=== PATIENT | male | born 1950 | race Caucasian/White ===

== ENCOUNTER 2016-12-21 19:55 | Emergency (ER) | payer MEDICARE, BC ==
[2016-12-21] MEDS ORDERED: SODIUM CHLORIDE 0.9% 1,000 ML IV STA ×2 (20:28)
[2016-12-21 21:01] LABS: Basophils % (A) 0 %; CH 31.9; CHCM 33.1; Eosinophils # (A) 0.1 k/uL (0-0.7); Eosinophils % (A) 1 %; HDW 2.24; HGB 15.6 gm/dL (13.0-17.5); Luc # (Auto) 0.15; Luc % (Auto) 2; Lymphocytes % (A) 20 %; MCH 32.2 pg (25.0-35.0); MCHC 33.3 g/dL (31.0-37.0); MCV 96.7 fL (80.0-100.0); Mean Platelet Volume 7.1; Monocytes # (A) 0.3 k/uL (0-1.0); Monocytes % (A) 3 %; Neutrophils # (A) 7.6 k/uL (1.3-7.7); Neutrophils % (A) 75 %; RBC 4.86 m/uL (4.30-5.90); RDW 12.5 % (11.5-15.5); WBC 10.1 k/uL (3.8-10.6); WBC (Perox) 9.92
[2016-12-21 21:10] LABS: ALT 42 U/L (21-72); AST 28 U/L (17-59); Alkaline Phosphatase 56 U/L (38-126); Anion Gap 15 mmol/L; Blood Urea Nitrogen 8 mg/dL (9-20); Carbon Dioxide 20 mmol/L (22-30); Chloride 104 mmol/L (98-107); Glucose 93 mg/dL (74-99); Non-African American GFR(MDRD) >60 (>60 ml/min/1.73 sqM); Potassium 4.6 mmol/L (3.5-5.1); Sodium 139 mmol/L (137-145); Total Bilirubin 0.2 mg/dL (0.2-1.3); Total Protein 7.6 g/dL (6.3-8.2)
--- NOTE | 2016-12-21 21:17 | XR ---
EXAMINATION TYPE: XR chest 2V DATE OF EXAM: 12/21/2016 COMPARISON: NONE HISTORY: Weakness TECHNIQUE: Frontal and lateral views of the chest are obtained. FINDINGS: There is no focal air space opacity, pleural effusion, or pneumothorax seen. The cardiac silhouette size is within normal limits. The osseous structures are intact. Minimal degenerative ch anges of the thoracic spine are incidentally noted. Mild degenerative changes of the acromio clavicul ar joints are also seen. IMPRESSION: No acute cardiopulmonary process.
[2016-12-21 21:20] LABS: Alcohol 202 mg/dL
[2016-12-21 21:39] LABS: Appearance,Urine Clear (Clear); Bilirubin,Urine Negative (Negative); Glucose,Urine (UA) Negative (Negative); Ketones,Urine Trace (Negative); Leukocyte Esterase,Urine Negative (Negative); Nitrite,Urine Negative (Negative); Protein,Urine Negative (Negative); Specific Gravity,Urine 1.007 (1.001-1.035); UA Billing (MACRO vs. MICRO) CHEM; Urobilinogen,Urine <2.0 mg/dL (<2.0)
--- NOTE | 2016-12-21 21:51 | CT ---
EXAMINATION TYPE: CT brain wo con DATE OF EXAM: 12/21/2016 COMPARISON: NONE HISTORY: Weakness CT DLP: 1090.40 mGycm. Automated Exposure Control for Dose Reduction was Utilized. TECHNIQUE: CT scan of the head is performed without contrast. FINDINGS: There is no acute intracranial hemorrhage, mass effect, or midline shift identified. Dys trophic basal ganglia calcifications are seen bilaterally, punctate. The ventricles and sulci are wit hin normal limits in size. The globes are intact and the visualized sinuses are clear. 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 Left frontal sinuses are hypoplastic. IMPRESSION: No acute intracranial hemorrhage, mass effect, or midline shift is seen.
[2016-12-21 22:00] LABS: INR 1.1 (<1.2); Partial Thromboplastin Time 24.1 sec (22.0-30.0); Prothrombin Time 10.9 sec (9.0-12.0)
[2016-12-21 22:12] LABS: Creatine Kinase 97 U/L (55-170)
[2016-12-21 22:24] LABS: Creatine Kinase MB 1.3 ng/mL (0.0-2.4); Troponin I <0.012 ng/mL (0.000-0.034)
--- NOTE | 2016-12-22 00:08 | ED ---
Weakness HPI - General Chief complaint: Weakness Stated complaint: weakness Time Seen by Provider: 12/21/16 20:01 Source: patient, EMS Mode of arrival: EMS Limitations: no limitations - History of Present Illness Initial comments: Extremities 6 years old male comes in complaining about pain being very weak, he has been drinking today then numb he was resting in with some friends he felt very weak he laid down and he was unable to Really didn't he denies any headaches he denies any neck pain he denies any chest pain no shortness of breath no abdominal pain no frequency urgency urgency dysuria no signs of TIA or CVA - Related Data Home Medications Medication Instructions Recorded Confirmed No Known Home Medications [No 12/21/16 12/21/16 Known Home Medications] Allergies Allergy/AdvReac Type Severity Reaction Status Date / Time No Known Allergies Allergy Verified 12/21/16 21:11 Review of Systems ROS Statement: Those systems with pertinent positive or pertinent negative responses have been documented in the HPI. ROS Other: All systems not noted in ROS Statement are negative. Past Medical History Past Medical History: Prostate Disorder History of Any Multi-Drug Resistant Organisms: None Reported Past Surgical History: No Surgical Hx Reported Past Psychological History: No Psychological Hx Reported Smoking Status: Never smoker Past Alcohol Use History: Daily Past Drug Use History: None Reported General Exam - General Exam Comments Initial Comments: General: The patient is awake and alert, in no distress, and does not appear acutely ill. GCS is 15 and he looks sleepy Skin: Skin is warm and dry and no rashes or lesions are noted. Eye: Pupils are equal, round and reactive to light, extra-ocular movements are intact; there is normal conjunctiva bilaterally. Ears, nose, mouth and throat: There are moist mucous membranes and no oral lesions. Neck: The neck is supple, there is no tenderness or JVD. Cardiovascular: There is a regular rate and rhythm. No murmur, rub or gallop is appreciated. Respiratory: To auscultation bilateral, no wheezing no rhonchi no distress respiratory mendez noticed Gastrointestinal: Soft, non-distended, non-tender abdomen without masses or organomegaly noted. There is no rebound or guarding present. Bowel sounds are unremarkable. Back: There is no tenderness to palpation in the midline. There is no obvious deformity. Musculoskeletal: Normal ROM, no tenderness, There is no pedal edema. There is no calf tenderness or swelling. No cords were appreciated. Neurological: CN II-XII intact, Cranial nerves III through XII are intact. There are no obvious motor or sensory deficits. Coordination appears grossly intact. Speech is normal. Psychiatric: Cooperative, appropriate mood & affect, normal judgment. Limitations: no limitations Course Vital Signs 12/21/16 12/21/16 12/21/16:17 21:30 23:03 Temperature 97.5 F L Pulse Rate 85 84 86 Respiratory 16 16 16 Rate Blood Pressure 139/70 107/81 O2 Sat by Pulse 98 98 99 Oximetry His labs and imaging were reviewed and discussed with the family, his CBC, INR, comprehensive metabolic panel, troponin within normal range his oncologist for 2 chest x-rays are normal range at CT is within normal range, these were discussed with the patient and the family he was reassured and he was counseled about a call as well as dehydration - Reevaluation(s) Reevaluation #1: 12/22/16 00:05 Time he was reassessed at 12 midnight, he amputated well, he told me he feels pretty good feels his strength is back and he was to go home his cannot drive him Medical Decision Making - Lab Data Result diagrams: 12/21/16 20:52 12/21/16 20:52 Lab Results 12/21/16 12/21/16 12/21/16 Range/Units 20:52 20:52 21:20 WBC 10.1 (3.8-10.6) k/uL RBC 4.86 (4.30-5.90) m/uL Hgb 15.6 (13.0-17.5) gm/dL Hct 47.0 (39.0-53.0) % MCV 96.7 (80.0-100.0) fL MCH 32.2 (25.0-35.0) pg MCHC 33.3 (31.0-37.0) g/dL RDW 12.5 (11.5-15.5) % Plt Count 259 (150-450) k/uL Neutrophils % 75 % Lymphocytes % 20 % Monocytes % 3 % Eosinophils % 1 % Basophils % 0 % Neutrophils # 7.6 (1.3-7.7) k/uL Lymphocytes # 2.0 (1.0-4.8) k/uL Monocytes # 0.3 (0-1.0) k/uL Eosinophils # 0.1 (0-0.7) k/uL Basophils # 0.0 (0-0.2) k/uL PT (9.0-12.0) sec INR (<1.2) APTT (22.0-30.0) sec Sodium 139 (137-145) mmol/L Potassium 4.6 (3.5-5.1) mmol/L Chloride 104 (98-107) mmol/L Carbon Dioxide 20 L (22-30) mmol/L Anion Gap 15 mmol/L BUN 8 L (9-20) mg/dL Creatinine 0.81 (0.66-1.25) mg/dL Est GFR (MDRD) Af Amer >60 (>60 ml/min/1.73 sqM) Est GFR (MDRD) Non-Af >60 (>60 ml/min/1.73 sqM) Glucose 93 (74-99) mg/dL Plasma Lactic Acid Cel[place] (0.7-2.0) mmol/L Calcium 9.0 (8.4-10.2) mg/dL Total Bilirubin 0.2 (0.2-1.3) mg/dL AST 28 (17-59) U/L ALT 42 (21-72) U/L Alkaline Phosphatase 56 (38-126) U/L Total Creatine Kinase (55-170) U/L CK-MB (CK-2) (0.0-2.4) ng/mL CK-MB (CK-2) Rel Index Troponin I (0.000-0.034) ng/mL Total Protein 7.6 (6.3-8.2) g/dL Albumin 4.4 (3.5-5.0) g/dL Urine Color Light Yellow Urine Appearance Clear (Clear) Urine pH 6.0 (5.0-8.0) Ur Specific [place] 1.007 (1.001-1.035) Urine Protein Negative (Negative) Urine Glucose (UA) Negative (Negative) Urine Ketones Trace H (Negative) Urine Blood Negative (Negative) Urine Nitrite Negative (Negative) Urine Bilirubin Negative (Negative) Urine Urobilinogen <2.0 (<2.0) mg/dL Ur Leukocyte Esterase Negative (Negative) Serum Alcohol 202 mg/dL 10/01/17 10/01/17 10/01/17 Range/Units 21:26 21:26 21:26 WBC (3.8-10.6) k/uL RBC (4.30-5.90) m/uL Hgb (13.0-17.5) gm/dL Hct (39.0-53.0) % MCV (80.0-100.0) fL MCH (25.0-35.0) pg MCHC (31.0-37.0) g/dL RDW (11.5-15.5) % Plt Count (150-450) k/uL Neutrophils % % Lymphocytes % % Monocytes % % Eosinophils % % Basophils % % Neutrophils # (1.3-7.7) k/uL Lymphocytes # (1.0-4.8) k/uL Monocytes # (0-1.0) k/uL Eosinophils # (0-0.7) k/uL Basophils # (0-0.2) k/uL PT 10.9 (9.0-12.0) sec INR 1.1 (<1.2) APTT 24.1 (22.0-30.0) sec Sodium (137-145) mmol/L Potassium (3.5-5.1) mmol/L Chloride (98-107) mmol/L Carbon Dioxide (22-30) mmol/L Anion Gap mmol/L BUN (9-20) mg/dL Creatinine (0.66-1.25) mg/dL Est GFR (MDRD) Af Amer (>60 ml/min/1.73 sqM) Est GFR (MDRD) Non-Af (>60 ml/min/1.73 sqM) Glucose (74-99) mg/dL Plasma Lactic Acid [place] 1.6 (0.7-2.0) mmol/L Calcium (8.4-10.2) mg/dL Total Bilirubin (0.2-1.3) mg/dL AST (17-59) U/L ALT (21-72) U/L Alkaline Phosphatase (38-126) U/L Total Creatine Kinase 97 (55-170) U/L CK-MB (CK-2) 1.3 (0.0-2.4) ng/mL CK-MB (CK-2) Rel Index 1.3 Troponin I <0.012 (0.000-0.034) ng/mL Total Protein (6.3-8.2) g/dL Albumin (3.5-5.0) g/dL Urine Color Urine Appearance (Clear) Urine pH (5.0-8.0) Ur Specific [place] (1.001-1.035) Urine Protein (Negative) Urine Glucose (UA) (Negative) Urine Ketones (Negative) Urine Blood (Negative) Urine Nitrite (Negative) Urine Bilirubin (Negative) Urine Urobilinogen (<2.0) mg/dL Ur Leukocyte Esterase (Negative) Serum Alcohol mg/dL Disposition Clinical Impression: Weakness, Acute alcohol intoxication Disposition: HOME SELF-CARE Condition: Good Instructions: Dehydration (ED) Additional Instructions: Is advised to keep himself well-hydrated and drinking in moderation . Return to the ER if symptoms recur or get worse otherwise follow-up with family doctor Referrals: William Aldana DO [Primary Care Provider] - 1-2 days
[2016-12-22 00:15] VITALS: BP 130/66; PULSE 78; RESP 20; TEMP 98.6
== END 2016-12-22 00:15 | disposition home or self-care (01) ==
LOC: EC 19:55
DX: R53.1 Weakness (principal); F10.129 Alcohol abuse with intoxication, unspecified; R40.2412 Glasgow coma scale score 13-15, at arrival to emergency department; Z53.8 Procedure and treatment not carried out for other reasons
CPT/HCPCS: 36415; 70450; 71020; 80053; 80320; 81003; 82550; 82553; 83605; 84484; 85025; 85610; 85730; 96360; 99285

== ENCOUNTER → 2018-11-25 | Outpatient (CLI) | payer BC, MEDICARE ==
[2018-11-25 16:13] LABS: Total Bilirubin 0.4 mg/dL (0.2-1.2)
== END | disposition home or self-care (01) ==
LOC: LABWHC1 09:39
PROVIDERS: ATTEND Internal Medicine Medical Oncology
DX: C61 Malignant neoplasm of prostate (principal)
CPT/HCPCS: 36415; 82247; 84075; 84450; 84460

== ENCOUNTER → 2018-12-02 | Outpatient (CLI) | payer MEDICARE ==
[2018-12-02 16:43] LABS: Total Bilirubin 0.4 mg/dL (0.3-1.2)
== END | disposition home or self-care (01) ==
LOC: LABWHC1 10:35
PROVIDERS: ATTEND Internal Medicine Medical Oncology
DX: C61 Malignant neoplasm of prostate (principal)
CPT/HCPCS: 36415; 82247; 84075; 84450; 84460

== ENCOUNTER → 2019-01-17 | Outpatient (CLI) | payer MEDICARE ==
[2019-01-17 16:50] LABS: Total Bilirubin 0.7 mg/dL (0.2-1.2)
== END | disposition home or self-care (01) ==
LOC: LABWHC1 08:38
PROVIDERS: ATTEND Internal Medicine Medical Oncology
DX: C61 Malignant neoplasm of prostate (principal)
CPT/HCPCS: 36415; 82247; 84075; 84450; 84460

== ENCOUNTER 2021-10-01 16:00 | Observation (INO) | payer MEDICARE ==
[2021-10-01 18:05] LABS: ALT 16 U/L (4-49); AST 27 U/L (17-59); African American GFR (CKD) >90 (>60 ml/min/1.73 sqM); Albumin 4.5 g/dL (3.5-5.0); Alkaline Phosphatase 52 U/L (38-126); Anion Gap 8 mmol/L; Blood Urea Nitrogen 12 mg/dL (9-20); Calcium 9.1 mg/dL (8.4-10.2); Carbon Dioxide 23 mmol/L (22-30); Chloride 105 mmol/L (98-107); Glucose 86 mg/dL (74-99); Magnesium 2.2 mg/dL (1.6-2.3); Non-African American GFR(CKD) 89 (>60 ml/min/1.73 sqM); Potassium 4.4 mmol/L (3.5-5.1); Sodium 136 mmol/L (137-145); Total Bilirubin 0.6 mg/dL (0.2-1.3); Total Protein 7.3 g/dL (6.3-8.2)
--- NOTE | 2021-10-01 18:05 | XR ---
EXAMINATION TYPE: XR chest 2V DATE OF EXAM: 10/01/2021 5:57 PM COMPARISON: Chest radiographs from 12/21/2016. TECHNIQUE: XR chest 2V Portable AP radiograph of the chest. CLINICAL INDICATION:Male, 71 years old with history of Chest Pain; FINDINGS: Lungs/Pleura: There is no evidence of pleural effusion, focal consolidation, or pneumothorax. Pulmonary vascularity: Unremarkable. Heart/mediastinum: Cardiomediastinal silhouette is unremarkable. Musculoskeletal: No acute osseous pathology. IMPRESSION: No acute cardiopulmonary disease/process.
[2021-10-01 18:16] LABS: Basophils # (A) 0.1 k/uL (0-0.2); Basophils % (A) 1 %; Eosinophils # (A) 0.1 k/uL (0-0.7); Eosinophils % (A) 1 %; HCT 45.2 % (39.0-53.0); INR 1.1 (<1.2); Lymphocytes # (A) 2.5 k/uL (1.0-4.8); Lymphocytes % (A) 37 %; MCH 32.3 pg (25.0-35.0); MCHC 33.3 g/dL (31.0-37.0); MCV 96.9 fL (80.0-100.0); Monocytes # (A) 0.5 k/uL (0-1.0); Monocytes % (A) 8 %; Neutrophils # (A) 3.4 k/uL (1.3-7.7); Neutrophils % (A) 50 %; Partial Thromboplastin Time 25.3 sec (22.0-30.0); Platelet Count 212 k/uL (150-450); Prothrombin Time 11.7 sec (9.0-12.0); RBC 4.66 m/uL (4.30-5.90); RDW 13.2 % (11.5-15.5); WBC 6.7 k/uL (3.8-10.6)
--- NOTE | 2021-10-01 18:50 | ED ---
General Adult HPI - General Chief complaint: Recheck/Abnormal Lab/Rx Stated complaint: Irregular EKG-Sent by PCP Time Seen by Provider: 10/01/21 18:25 Source: patient, RN notes reviewed, old records reviewed Mode of arrival: ambulatory Limitations: no limitations - History of Present Illness Initial comments: This is a 71-year-old male who presents emergency department stating that more recently anytime he bends over he stands up and almost passes out. Patient states his been ongoing a few months. Patient states he got into see his primary medical care doctor for the first time in a long time and he noted an abnormality in EKG and sent to the emergency department. Patient states earlier today he has some chest tightness but that has gone away. Patient denies any fever chills or cough. Patient states he does not typically short of breath e talon when he bends over he just feels like he is going to pass out. Patient denies any leg swelling or calf tenderness. Patient denies any nausea vomiting diarrhea. Patient denies any back pain. - Related Data Home Medications Medication Instructions Recorded Confirmed Tamsulosin HCl [Flomax] 0.4 mg PO BID 10/01/21 10/01/21 Allergies Allergy/AdvReac Type Severity Reaction Status Date / Time No Known Allergies Allergy Verified 10/01/21 18:43 Review of Systems ROS Statement: Those systems with pertinent positive or pertinent negative responses have been documented in the HPI. ROS Other: All systems not noted in ROS Statement are negative. Past Medical History Past Medical History: Prostate Disorder History of Any Multi-Drug Resistant Organisms: None Reported Past Surgical History: No Surgical Hx Reported Past Psychological History: No Psychological Hx Reported Smoking Status: Never smoker Past Alcohol Use History: Daily Past Drug Use History: None Reported General Exam - General Exam Comments Initial Comments: GENERAL: Patient is well-developed and well-nourished. Patient is nontoxic and well- hydrated and is in no acute distress. ENT: Neck is soft and supple. No significant lymphadenopathy is noted. Oropharynx is clear. Moist mucous membranes. Neck has full range of motion without eliciting any pain. EYES: The sclera were anicteric and conjunctiva were pink and moist. Extraocular movements were intact and pupils were equal round and reactive to light. Eyelids were unremarkable. PULMONARY: Unlabored respirations. Good breath sounds bilaterally. No audible rales rhonchi or wheezing was noted. CARDIOVASCULAR: Patient has an irregular heartbeat. ABDOMEN: Soft and nontender with normal bowel sounds. SKIN: Skin is clear with no lesions or rashes and otherwise unremarkable. NEUROLOGIC: Patient is alert and oriented x3. Cranial nerves II through XII are grossly intact. Motor and sensory are also intact. Normal speech, volume and content. Symmetrical smile. MUSCULOSKELETAL: Normal extremities with adequate strength and full range of motion. LYMPHATICS: No significant lymphadenopathy is noted PSYCHIATRIC: Normal psychiatric evaluation. Limitations: no limitations Course Vital Signs 10/01/21 16:17 Temperature 97.6 F Pulse Rate 73 Respiratory 15 Rate Blood Pressure 135/94 O2 Sat by Pulse 100 Oximetry Medical Decision Making - Medical Decision Making EKG shows atrial flutter at 75 bpm QRS is 152 QTC is 406 QTC is 434. Patient's EKG shows a right bundle branch block. Chest x-ray shows no acute abnormality. I started the patient on heparin because of the new onset atrial flutter. I spoke with some physicians agreed to admit the patient admitted the patient wrote admitting orders. - Lab Data Result diagrams: 10/01/21 17:26 10/01/21 17:26 Lab Results 10/01/21 10/01/21 10/01/21 Range/Units 17:26 17:26 17:26 WBC 6.7 (3.8-10.6) k/uL RBC 4.66 (4.30-5.90) m/uL Hgb 15.0 (13.0-17.5) gm/dL Hct 45.2 (39.0-53.0) % MCV 96.9 (80.0-100.0) fL MCH 32.3 (25.0-35.0) pg MCHC 33.3 (31.0-37.0) g/dL RDW 13.2 (11.5-15.5) % Plt Count 212 (150-450) k/uL MPV 8.0 Neutrophils % 50 % Lymphocytes % 37 % Monocytes % 8 % Eosinophils % 1 % Basophils % 1 % Neutrophils # 3.4 (1.3-7.7) k/uL Lymphocytes # 2.5 (1.0-4.8) k/uL Monocytes # 0.5 (0-1.0) k/uL Eosinophils # 0.1 (0-0.7) k/uL Basophils # 0.1 (0-0.2) k/uL PT 11.7 (9.0-12.0) sec INR 1.1 (<1.2) APTT 25.3 (22.0-30.0) sec Sodium 136 L (137-145) mmol/L Potassium 4.4 (3.5-5.1) mmol/L Chloride 105 (98-107) mmol/L Carbon Dioxide 23 (22-30) mmol/L Anion Gap 8 mmol/L BUN 12 (9-20) mg/dL Creatinine 0.84 (0.66-1.25) mg/dL Est GFR (CKD-EPI)AfAm >90 (>60 ml/min/1.73 sqM) Est GFR (CKD-EPI)NonAf 89 (>60 ml/min/1.73 sqM) Glucose 86 (74-99) mg/dL Calcium 9.1 (8.4-10.2) mg/dL Magnesium 2.2 (1.6-2.3) mg/dL Total Bilirubin 0.6 (0.2-1.3) mg/dL AST 27 (17-59) U/L ALT 16 (4-49) U/L Alkaline Phosphatase 52 (38-126) U/L Troponin I (0.000-0.034) ng/mL Total Protein 7.3 (6.3-8.2) g/dL Albumin 4.5 (3.5-5.0) g/dL 10/01/21 Range/Units 17:26 WBC (3.8-10.6) k/uL RBC (4.30-5.90) m/uL Hgb (13.0-17.5) gm/dL Hct (39.0-53.0) % MCV (80.0-100.0) fL MCH (25.0-35.0) pg MCHC (31.0-37.0) g/dL RDW (11.5-15.5) % Plt Count (150-450) k/uL MPV Neutrophils % % Lymphocytes % % Monocytes % % Eosinophils % % Basophils % % Neutrophils # (1.3-7.7) k/uL Lymphocytes # (1.0-4.8) k/uL Monocytes # (0-1.0) k/uL Eosinophils # (0-0.7) k/uL Basophils # (0-0.2) k/uL PT (9.0-12.0) sec INR (<1.2) APTT (22.0-30.0) sec Sodium (137-145) mmol/L Potassium (3.5-5.1) mmol/L Chloride (98-107) mmol/L Carbon Dioxide (22-30) mmol/L Anion Gap mmol/L BUN (9-20) mg/dL Creatinine (0.66-1.25) mg/dL Est GFR (CKD-EPI)AfAm (>60 ml/min/1.73 sqM) Est GFR (CKD-EPI)NonAf (>60 ml/min/1.73 sqM) Glucose (74-99) mg/dL Calcium (8.4-10.2) mg/dL Magnesium (1.6-2.3) mg/dL Total Bilirubin (0.2-1.3) mg/dL AST (17-59) U/L ALT (4-49) U/L Alkaline Phosphatase (38-126) U/L Troponin I <0.012 (0.000-0.034) ng/mL Total Protein (6.3-8.2) g/dL Albumin (3.5-5.0) g/dL Critical Care Time Critical Care Time: Yes Total Critical Care Time: 35 Disposition Clinical Impression: New onset atrial flutter Disposition: ADMITTED IP TO THIS HOSP Referrals: Hal Gutiérrez MD [Primary Care Provider] - 1-2 days Time of Disposition: 18:52
[2021-10-01] MEDS ORDERED: NITROGLYCERIN SL TABS 0.4 MG TAB SUBLINGUAL PRN (20:04)
[2021-10-01] MEDS: SODIUM CHLORIDE 0.9% 1,000 ML IV SCH (23:24)
--- NOTE | 2021-10-02 03:29 | P.HPIM ---
History of Present Illness H&P Date: 10/01/21 Chief Complaint: Presyncope 71-year-old male with prostate cancer was treated conservatively by himself Patient comes into the hospital for evaluation upon recommendation of his PCP due to abnormal EKG. Patient reports that for the past 2 months he isn't having limited activity he normally enjoys working in his yard however over the past 2 months he would feel almost passing out every time he bends over and tried stands up and also feels some palpitations. He denies any recent travel or hospitalization he denies any recent illness denies any fevers chills coughing c hest pain or trouble breathing denies any GI bleeding He reports history of prostate cancer he was initiated on some therapy that he couldn't tolerate and he elected to treated conservatively and naturally by himself. He denies any hematuria or new urinary symptoms. He denies any cardiac history Workup in the ED showed atrial flutter Blood work unremarkable Patient denies tobacco smoking illicit drugs he does admit to occasional alcohol Review of Systems Pertinent positives as noted in HPI. All other systems were reviewed and are negative Past Medical History Past Medical History: Prostate Disorder History of Any Multi-Drug Resistant Organisms: None Reported Past Surgical History: No Surgical Hx Reported Past Psychological History: No Psychological Hx Reported Smoking Status: Never smoker Past Alcohol Use History: Daily Past Drug Use History: None Reported - Past Family History Family Family Medical History: No Reported History Medications and Allergies Home Medications Medication Instructions Recorded Confirmed Type Tamsulosin HCl [Flomax] 0.4 mg PO BID 10/01/21 10/01/21 History Allergies Allergy/AdvReac Type Severity Reaction Status Date / Time No Known Allergies Allergy Verified 10/01/21 18:43 Physical Exam Vitals: Vital Signs Temp Pulse Resp BP Pulse Ox 10/01/21 16:17 97.6 F 73 15 135/94 100 Intake and Output 10/01/21 10/01/21 10/01/21 06:59 14:59 22:59 Other: Weight 92.986 kg Constitutional: No acute distress, conversant, pleasant Eyes: Anicteric sclerae, moist conjunctiva, Pupils equal round reactive to light ENMT: NC/AT Oropharynx clear, no erythema, or exudates Neck: Supple, FROM, no masses, or JVD No carotid bruits No thyromegaly Lungs: Clear to auscultation Clear to percussion Normal respiratory effort, no accessory muscle use Cardiovascular: Heart irregular No murmurs, gallops, or rubs No peripheral edema Abdominal: Soft Nontender, no guarding, rebound or rigidity Abdomen moving with respiration Normoactive bowel sounds No hepatomegaly, No splenomegaly No palpable mass No abdominal wall hernia noted Skin: Normal temperature, tone, texture, turgor No induration No subcutaneous nodules No rash, lesions No ulcers Extremities: No digital cyanosis No clubbing Pedal pulses intact and symmetrical Radial pulses intact and symmetrical No calf tenderness Psychiatric: Alert and oriented to person, place and time Appropriate affect fair judgement Neuro Muscles Strength 5/5 in all 4 extremities Sensation to light touch grossly present throughout Cranial nerves II-XII grossly intact No focal sensory deficits Lymphatics: no palpable cervical or supraclavicular , or inguinal lymph nodes Results CBC & Chem 7: 10/01/21 17:26 10/01/21 17:26 Labs: Abnormal Lab Results - Last 24 Hours (Table) 10/01/21 Range/Units 17:26 Sodium 136 L (137-145) mmol/L Assessment and Plan Assessment: Atrial flutter Check echocardiogram Check TSH Cardiac monitoring Monitor vital signs Fall precautions Cardiology consult Trend troponins Continue with aspirin Currently is rate controlled, if heart rate persistently beyond 110 we'll initiate Cardizem History of prostate cancer DVT prophylaxis heparin subcu 3 times a day Full code
[2021-10-02] MEDS ORDERED: HEPARIN SODIUM,PORCINE/PF 5,000 UNIT/0.5 ML SYRINGE SQ SCH (08:00)
[2021-10-02] MEDS: ASPIRIN 325 MG TAB PO SCH (09:46)
[2021-10-02] MEDS: SODIUM CHLORIDE 0.9% 1,000 ML IV SCH (11:50)
--- NOTE | 2021-10-02 12:15 | CA ---
Transthoracic Echo Report Name: Edd Mcconnell Age: 71 Gender: M : 1950 Exam Date: 10/02/2021 08:19 Exam Location: [facility] Ht (in): 71 Wt (lb): 200 Ordering Physician: Sandi Ogden MD Attending/Referring Phys: [id number], Melvi Labor Trainer Janet Knowles, LOVELY Procedure CPT: Indications: aflutter Cardiac Hx: Technical Quality: Fair Contrast 1: Total Dose (mL): Contrast 2: Total Dose (mL): MEASUREMENTS (Male / Female) Normal Values 2D ECHO LV Diastolic Diameter PLAX 4.3 cm 4.2 - 5.9 / 3.9 - 5.3 cm LV Systolic Diameter PLAX 3.0 cm IVS Diastolic Thickness 1.2 cm 0.6 - 1.0 / 0.6 - 0.9 cm LVPW Diastolic Thickness 1.2 cm 0.6 - 1.0 / 0.6 - 0.9 cm LV Relative Wall Thickness 0.5 RV Internal Dim ED PLAX 4.3 cm LA Volume 55.2 cm??? 18 - 58 / 22 - 52 cm??? M-MODE Aortic Root Diameter MM 3.5 cm LA Systolic Diameter MM 2.3 cm LA Ao Ratio MM 0.7 MV E Point Septal Separation 1.4 cm AV Cusp Separation MM 1.9 cm DOPPLER AV Peak Velocity 83.7 cm/s AV Peak Gradient 2.8 mmHg MR Peak Velocity 298.2 cm/s MR Peak Gradient 35.6 mmHg TR Peak Velocity 261.0 cm/s TR Peak Gradient 27.2 mmHg Right Ventricular Systolic Press 32.2 mmHg FINDINGS Left Ventricle Mildly increased septal wall thickness. Left ventricular ejection fraction is estimated at 40-45 %. With moderate global hypokinesis. Left ventricular cavity size normal. Afib noted Right Ventricle Right ventricular dilatation. Moderate event Right Atrium Right atrial dilatation. Left Atrium The left atrium is normal in size. Mitral Valve Structurally normal mitral valve without significant stenosis or prolapse. There is mild mitral regurgitation. Mitral valve thickened. Aortic Valve Structurally normal aortic valve without significant sclerosis or stenosis. There is no aortic regurgitation. Tricuspid Valve Structurally normal tricuspid valve without significant stenosis. Pulmonary artery systolic pressure is normal. Trace tricuspid regurgitation. Pulmonic Valve Not well visualized. There is no pulmonic regurgitation. Pericardium Normal pericardium without effusion. Aorta Normal aortic root dimension. CONCLUSIONS 1. moderately impaired systolic function 2. Mild mitral regurgitation 3. No pericardial effusion. Previewed by: Dr. Andres Sarah MD (Electronically Signed) Final Date: 02 October 2021 12:14
--- NOTE | 2021-10-02 15:14 | P.PN ---
Subjective Progress Note Date: 10/02/21 Principal diagnosis: Atrial fibrillation Patient was seen and examined. No acute events overnight. Patient reports continued shortness of breath with exertion. He reports feeling winded if he bends down. He denies any chest pain or palpitations. No nausea or vomiting. No fever or chills. Objective - Vital Signs Vital signs: Vital Signs Temp 97.5 F L 10/02/21 12:00 Pulse 82 10/02/21 14:00 Resp 17 10/02/21 14:00 BP 158/56 10/02/21 12:00 Pulse Ox 91 L 10/02/21 12:00 FiO2 Intake & Output 10/01/21 10/02/21 10/02/21 18:59 06:59 18:59 Intake Total 120 Balance 120 Weight 92.986 kg 91.04 kg Intake: Oral 120 Other: Voiding Method Toilet Toilet # Voids 1 2 # Bowel Movements 1 - Exam General: [non toxic], [no distress], [appears at stated age] Derm: [warm], [dry] Head: [atraumatic], [normocephalic], [symmetric] Eyes: [EOMI], [no lid lag], [anicteric sclera] Mouth: [no lip lesion], [mucus membranes moist] Cardiovascular: [Irregularly regular], [no murmur] Lungs: [CTA bilateral], [no rhonchi, no rales] , [no accessory muscle use] Ext: [no gross muscle atrophy], [no edema], [no contractures] Neuro: [no focal neuro deficits] Psych: [Alert], [oriented], [appropriate affect] - Labs CBC & Chem 7: 10/01/21 17:26 10/01/21 17:26 Labs: Abnormal Lab Results - Last 24 Hours (Table) 10/01/21 Range/Units 17:26 Sodium 136 L (137-145) mmol/L Assessment and Plan Assessment: Atrial flutter Systolic CHF, stable Echocardiogram shows EF of 40-45% with global hypokinesis TSH within normal limits Troponins trended and ACS ruled out Cardiac monitoring Monitor vital signs Fall precautions Discussed with cardiology, continue to monitor overnight. Continue with aspirin Patient started on metoprolol and losartan. History of prostate cancer Follows physician out of [facility] in [place]. DVT prophylaxis heparin subcu 3 times a day FULL CODE
[2021-10-02 17:10] LABS: Chol/HDL Ratio 4.51 Ratio; LDL Cholesterol,Calculated 131.1 mg/dL (0.0-131.0); VLDL Calculation 19.92 mg/dL (5.00-40.00)
--- NOTE | 2021-10-02 20:57 | CONS ---
CONSULTATION Edd Mcconnell is a fairly active gentleman who for the last two months has been experiencing episodes of dizziness, lightheadedness, shortness of breath and decreased stamina. He did not seek medical attention and continued to work. Finally his insisted that he should come to the emergency room. Upon emergency room arrival, he said whenever he feels dizzy or lightheaded, he feels his heart racing and then he almost passes out. He went and saw his primary care physician after a long gap in visits and he was found to be in atrial flutter and sent to the emergency room. Patient is in atrial flutter. The rate is anywhere between 80 and 110. For two months he has history of palpitations, dizziness, lightheadedness, but no mallory syncope. He also noted decreased stamina and more shortness of breath. Echo revealed ejection fraction of 40% to 45%. Rate control is fair. He is resting comfortably without any rest symptoms. He does have exertional shortness of breath, palpitations, lightheadedness, but no mallory syncope. PAST MEDICAL HISTORY: He has some benign prostatic hypertrophy and takes Flomax. No evidence of any hypertension, diabetes, hyperlipidemia or CVA. He does not smoke but takes alcohol three times a week, 3 to 6 beers. EKG revealed atrial flutter with a variable rate of about 90 per minute with underlying right bundle branch block type IVCD. LABORATORY: Data do not suggest any myocardial damage. Thyroid function is normal. PHYSICAL EXAMINATION: On examination, blood pressure is 120/70, pulse rate is 90, irregular. HEENT unremarkable. Fundus was not examined by me. Neck is supple. There is a JVD of about 1 cm. No carotid bruit. Heart exam reveals S1, S2 with irregularity in rhythm, short systolic murmur at the left sternal border. Lungs reveal diminished air entry. Abdomen is soft, nontender. Lower extremities reveal diminished pulses. Central nervous system grossly within normal limits. IMPRESSION: 1. Cardiomyopathy, probably related to atrial flutter/fibrillation. 2. Atypical atrial flutter with moderate ventricular rate. 3. History of alcoholism. RECOMMENDATIONS: I am recommending that we will place him on Lovenox 90 mg subcutaneously b.i.d., metoprolol tartrate for rate control, and losartan 25 mg daily. Based on his clinical course, I will make further recommendations. He may require electrical cardioversion after placing him on anticoagulation for at least 4 weeks. I discussed my thoughts in detail with the patient and also spoke to his . Echo revealed ejection fraction of 40% to 45% with global decrease in contractility and mild mitral regurgitation and also mild tricuspid regurgitation. I discussed my thoughts in detail with the patient and his . Thank you very much for the consult. LIDIA / MARGRET: [id number] /
[2021-10-02] MEDS ORDERED: LOSARTAN 25 MG TAB PO SCH (21:00)
[2021-10-02] MEDS: ENOXAPARIN 100 MG/ML SYRINGE SQ SCH (21:45)
[2021-10-02] MEDS: METOPROLOL TARTRATE 25 MG TAB PO SCH (21:46)
[2021-10-03] MEDS: ENOXAPARIN 100 MG/ML SYRINGE SQ SCH (08:18)
[2021-10-03] MEDS: METOPROLOL TARTRATE 25 MG TAB PO SCH (08:18)
[2021-10-03] MEDS: ASPIRIN 325 MG TAB PO SCH (08:18)
[2021-10-03] MEDS ORDERED: TAMSULOSIN 0.4 MG CAP.ER.24H PO SCH (09:00)
[2021-10-03] MEDS ORDERED: METOPROLOL TARTRATE 25 MG TAB PO STA (10:58)
[2021-10-03] MEDS ORDERED: AMIODARONE 200 MG TAB PO SCH (11:15)
[2021-10-03] MEDS ORDERED: APIXABAN 5 MG TAB PO SCH (11:15)
[2021-10-03 11:20] VITALS: BP 137/90; PULSE 93; RESP 16; TEMP 98
--- NOTE | 2021-10-03 11:39 | P.DS ---
Providers Date of admission: 10/01/21 20:05 Expected date of discharge: 10/03/21 Attending physician: Sandi Ogden MD Consults: 10/01/21 20:04 Consult Physician Urgent Consulting Provider: [facility] Consult Reason/Comments: New-onset atrial flutter Do you want consulting provider notified?: Yes Primary care physician: Hal Whitman [facility] Course: 71-year-old male with prostate cancer was treated conservatively by himself Patient comes into the hospital for evaluation upon recommendation of his PCP due to abnormal EKG. Patient reports that for the past 2 months he isn't having limited activity he normally enjoys working in his yard however over the past 2 months he would feel almost passing out every time he bends over and tried stands up and also feels some palpitations. He denies any recent travel or hospitalization he denies any recent illness denies any fevers chills coughing chest pain or trouble breathing denies any GI bleeding He reports history of prostate cancer he was initiated on some therapy that he couldn't tolerate and he elected to treated conservatively and naturally by himself. He denies any hematuria or new urinary symptoms. He denies any cardiac history Workup in the ED showed atrial flutter Blood work unremarkable Patient denies tobacco smoking illicit drugs he does admit to occasional alcohol Troponins trended and ACS was ruled out. TSH was within normal limits. Cardiology was consulted and recommended echocardiogram. Echocardiogram showed EF of 40-45% with moderate global hypokinesis. Cardiology started the patient on losartan, metoprolol and amiodarone. He was initially on therapeutic Lovenox which was transitioned to Eliquis. Cardiology cleared the patient for discharge. Patient was seen and examined on 10/03/2021. He reported lightheadedness when standing up. Otherwise, his heart rate was maintained 80-90 on telemetry. He denied any chest pain, shortness breath or palpitations. No nausea or vomiting. No fever or chills. General: [non toxic], [no distress], [appears at stated age] Derm: [warm], [dry] Head: [atraumatic], [normocephalic], [symmetric] Eyes: [EOMI], [no lid lag], [anicteric sclera] Mouth: [no lip lesion], [mucus membranes moist] Cardiovascular: [Irregularly irregular], [no murmur] Lungs: [CTA bilateral], [no rhonchi, no rales] , [no accessory muscle use] Ext: [no gross muscle atrophy], [no edema], [no contractures] Neuro: [no focal neuro deficits] Psych: [Alert], [oriented], [appropriate affect] Discharge diagnosis: Atrial flutter Systolic CHF, stable Dyslipidemia This complex discharge took about 35 minutes to complete. Pertinent Studies: Echocardiogram Patient Condition at Discharge: Stable Plan - Discharge Summary New Discharge Prescriptions: New Amiodarone [Cordarone] 200 mg PO BID #60 tab Losartan [Cozaar] 25 mg PO HS #30 tab Apixaban [Eliquis] 5 mg PO BID #60 tab Metoprolol Tartrate [Lopressor] 50 mg PO BID #60 tab Continue Tamsulosin HCl [Flomax] 0.4 mg PO BID Discharge Medication List Tamsulosin HCl [Flomax] 0.4 mg PO BID 10/01/21 [History] Apixaban [Eliquis] 5 mg PO BID #60 tab 10/02/21 [Rx] Amiodarone [Cordarone] 200 mg PO BID #60 tab 10/03/21 [Rx] Losartan [Cozaar] 25 mg PO HS #30 tab 10/03/21 [Rx] Metoprolol Tartrate [Lopressor] 50 mg PO BID #60 tab 10/03/21 [Rx] Follow up Appointment(s)/Referral(s): Truman Prather MD [STAFF PHYSICIAN] - 1 Week Hal Gutiérrez MD [Primary Care Provider] - 1-2 days Patient Instructions/Handouts: Safe Use of Anticoagulants (DC) Activity/Diet/Wound Care/Special Instructions: Diet: Cardiac Follow-up with PCP within 1-2 days of discharge. Follow-up with cardiology within 1 week of discharge. Take all medications as advised. Come back to the ED or call 911 for worsening chest pain, shortness of breath, palpitations or dizziness. Discharge Disposition: HOME SELF-CARE
--- NOTE | 2021-10-03 18:13 | PN ---
PROGRESS NOTE Mr. Mcconnell remains in atrial flutter/coarse fibrillation, controlled rate, much better than yesterday. He still has dizziness, but there are no orthostatic changes. I am recommending metoprolol tartrate 50 mg b.i.d., amiodarone 12 mg b.i.d., Eliquis 5 mg b.i.d., to go home, not to do any strenuous activity, and I will see him in the office in about 10 to 12 days, but to call me sooner for a question, concern or problem. Vitals are stable. No JVD. S1, S2 with rhythm noted, short systolic murmur noted. Lungs reveal decent air entry. Abdomen is soft, non-tender. Lower extremities reveal diminished pulses. Central nervous system grossly within normal limits. Advised to refrain from alcohol as well. MMODL / IJN: [id number] /
[2021-10-03] MEDS ORDERED: METOPROLOL TARTRATE 50 MG TAB PO SCH (21:00)
== END 2021-10-03 13:51 | disposition home or self-care (01) ==
LOC: EC 16:00 → 3SCARD 20:05
PROVIDERS: ADMIT Internal Medicine; ATTEND Internal Medicine
DX: I48.4 Atypical atrial flutter (principal); Z85.46 Personal history of malignant neoplasm of prostate; I50.20 Unspecified systolic (congestive) heart failure; E78.5 Hyperlipidemia, unspecified; I45.10 Unspecified right bundle-branch block; R01.1 Cardiac murmur, unspecified; R00.0 Tachycardia, unspecified; I42.9 Cardiomyopathy, unspecified; I48.91 Unspecified atrial fibrillation; Z79.899 Other long term (current) drug therapy; N40.0 Benign prostatic hyperplasia without lower urinary tract symptoms; I08.1 Rheumatic disorders of both mitral and tricuspid valves; Z71.9 Counseling, unspecified
CPT/HCPCS: 96360; 96361; 96372 ×2; 99291; 36415; 93005; 93306; 80061; 80053; 84443; 83735; 84484; 85025; 85610; 85730; 71046; G0378 ×3; J1650 ×2; J1644

== ENCOUNTER 2021-10-24 14:31 | Observation (INO) | payer MEDICARE ==
[2021-10-24 15:24] LABS: Basophils # (A) 0.1 k/uL (0-0.2); Basophils % (A) 1 %; Eosinophils # (A) 0.2 k/uL (0-0.7); Eosinophils % (A) 2 %; HGB 15.7 gm/dL (13.0-17.5); Lymphocytes # (A) 3.8 k/uL (1.0-4.8); Lymphocytes % (A) 37 %; MCH 30.5 pg (25.0-35.0); MCHC 32.1 g/dL (31.0-37.0); MCV 94.9 fL (80.0-100.0); Mean Platelet Volume 7.7; Monocytes # (A) 0.7 k/uL (0-1.0); Monocytes % (A) 7 %; Neutrophils # (A) 5.4 k/uL (1.3-7.7); Neutrophils % (A) 53 %; Platelet Count 251 k/uL (150-450); RBC 5.17 m/uL (4.30-5.90); RDW 12.8 % (11.5-15.5); WBC 10.3 k/uL (3.8-10.6)
[2021-10-24 15:34] LABS: ALT 20 U/L (4-49); AST 30 U/L (17-59); African American GFR (CKD) >90 (>60 ml/min/1.73 sqM); Albumin 4.5 g/dL (3.5-5.0); Alkaline Phosphatase 48 U/L (38-126); Anion Gap 8 mmol/L; Blood Urea Nitrogen 15 mg/dL (9-20); Calcium 8.9 mg/dL (8.4-10.2); Carbon Dioxide 23 mmol/L (22-30); Chloride 106 mmol/L (98-107); Glucose 82 mg/dL (74-99); Non-African American GFR(CKD) >90 (>60 ml/min/1.73 sqM); Sodium 137 mmol/L (137-145); Total Bilirubin 0.6 mg/dL (0.2-1.3); Total Protein 7.2 g/dL (6.3-8.2)
[2021-10-24 15:35] LABS: Partial Thromboplastin Time 26.5 sec (22.0-30.0); Prothrombin Time 11.2 sec (9.0-12.0)
--- NOTE | 2021-10-24 15:36 | XR ---
EXAMINATION TYPE: XR chest 2V DATE OF EXAM: 10/24/2021 COMPARISON: 10/01/2021 HISTORY: 71-year-old male with chest pain TECHNIQUE: PA and lateral views FINDINGS: Heart borderline in size. Minimal atherosclerotic arch calcifications. Some central peribronchial cuf fing on both sides. No consolidation or pleural effusion. [facility] in the lower thoracic spine. IMPRESSION: Some central peribronchial cuffing may be seen with bronchitis or chronic asthma. Otherwise, no acute process seen.
--- NOTE | 2021-10-24 17:25 | ED ---
Chest Pain HPI - General Chief Complaint: Chest Pain Stated Complaint: Irregulr EKG,Sent by PCP Time Seen by Provider: 10/24/21 16:20 Source: patient Mode of arrival: ambulatory Limitations: no limitations - History of Present Illness Initial Comments: Patient is a 71-year-old male presenting for evaluation of chest pain. Patient was on his way to his doctor's appointment this morning when he began experiencing dull left-sided chest pain. Patient states it did not radiate down the arms or the neck, no nausea, vomiting, diaphoresis. Patient's PCP perform an EKG and sent him to the ER for evaluation. At the time of my evaluation, patient states the pain lasted for a few hours and is now gone. Patient has a history of atrial flutter, hypertension, high cholesterol. He denies any shortness of breath, numbness, abdominal pain, nausea, vomiting, headache, vision or hearing changes, numbness, tingling, diarrhea, dysuria, hematuria. - Related Data Home Medications Medication Instructions Recorded Confirmed Tamsulosin HCl [Flomax] 0.4 mg PO BID 10/01/21 10/24/21 Amiodarone [Cordarone] 200 mg PO AC-BID 10/24/21 10/24/21 Apixaban [Eliquis] 5 mg PO AC-BID 10/24/21 10/24/21 Metoprolol Tartrate [Lopressor] 25 mg PO AC-BID 10/24/21 10/24/21 Previous Rx's Medication Instructions Recorded Losartan [Cozaar] 25 mg PO HS #30 tab 10/03/21 Allergies Allergy/AdvReac Type Severity Reaction Status Date / Time No Known Allergies Allergy Verified 10/24/21 18:11 Review of Systems ROS Statement: Those systems with pertinent positive or pertinent negative responses have been documented in the HPI. ROS Other: All systems not noted in ROS Statement are negative. EKG Findings - EKG Comments: EKG Findings:: Atrial flutter with slow ventricular response rate of 54. QRS duration 138. QT/QTC 448/434. No ischemic QT or T-wave changes. This EKG was also shown to and interpreted by my attending Dr. Pratt. Past Medical History Past Medical History: Prostate Disorder Additional Past Medical History / Comment(s): prostate cancer History of Any Multi-Drug Resistant Organisms: None Reported Past Surgical History: No Surgical Hx Reported Past Anesthesia/Blood Transfusion Reactions: Unable to Obtain Past Psychological History: No Psychological Hx Reported Smoking Status: Never smoker Past Alcohol Use History: Daily, Occasional Past Drug Use History: None Reported - Past Family History Family Family Medical History: No Reported History General Exam Limitations: no limitations General appearance: alert, in no apparent distress Head exam: Present: atraumatic, normocephalic, normal inspection Eye exam: Present: normal appearance, EOMI. Absent: scleral icterus, periorbital swelling Neck exam: Present: normal inspection Respiratory exam: Present: normal lung sounds bilaterally. Absent: respiratory distress, wheezes, rales, rhonchi, stridor Cardiovascular Exam: Present: regular rate, normal rhythm, normal heart sounds. Absent: systolic murmur, diastolic murmur, rubs, gallop, clicks Neurological exam: Present: alert, oriented X3, CN II-XII intact Psychiatric exam: Present: normal affect, normal mood Skin exam: Present: warm, dry, intact, normal color. Absent: rash Course Vital Signs 10/24/21 10/24/21 10/24/21 14:50 18:46 18:58 Temperature 97.1 F L Pulse Rate 55 L 59 L Pulse Rate [ 75 Palletizer ] Respiratory 20 16 Rate Blood Pressure 150/82 134/82 O2 Sat by Pulse 100 99 Oximetry 10/24/21 19:39 Temperature Pulse Rate 64 Pulse Rate [ Palletizer ] Respiratory Rate Blood Pressure 135/82 O2 Sat by Pulse 98 Oximetry Chest [facility] Patient is a 8-year-old male presenting with chief complaint of chest pain. Pain is located on the left side felt like a dull pain. Patient has history of atrial flutter, hypertension, hyperlipidemia. EKG showed a flutter, no ischemic ST or T-wave changes. CBC, PT/INR, CMP, troponin are unremarkable. Chest x- rays unremarkable. Given the patient's moderate heart score, he would be best suited for observation. I spoke with Dr. Ibarra who agreed to admit the patient. I discussed this plan with the patient, he conveyed verbal understanding was in agreement. Cardiology is consulted. I discussed this case with my attending Dr. Pratt Disposition Clinical Impression: Chest pain, Atrial flutter Disposition: ADMITTED IP TO THIS [facility] Condition: Fair Time of Disposition: 17:26 Decision to Admit Reason: Admit from EC Decision Date: 10/24/21 Decision Time: 17:26
[2021-10-24] MEDS ORDERED: NALOXONE 0.4 MG/ML 1 ML VIAL IV PRN (17:26)
[2021-10-24] MEDS ORDERED: ACETAMINOPHEN TAB 325 MG TAB PO PRN (18:04)
[2021-10-24] MEDS ORDERED: ASPIRIN 325 MG TAB PO STA (18:04)
[2021-10-24] MEDS ORDERED: NALOXONE 0.4 MG/ML 1 ML VIAL IVP PRN (18:04)
--- NOTE | 2021-10-24 18:23 | P.HPIM ---
History of Present Illness H&P Date: 10/24/21 History of Presenting Illness: Patient is a 71-year-old male with a past medical history of prostate cancer reportedly in remission since 2019 and recently diagnosed atrial flutter, dyslipidemia, and systolic congestive heart failure with EF 40-45%. Patient presented to the emergency department with a chief complaint of chest pain. Patient reports he was outside this morning just watering his garden and came in and was relaxing in the recliner. Patient states he began developing dull left- sided chest pain/pressure. Patient reports this pain persisted and he went to see his PCP, Dr. Gutiérrez whom did an EKG and sent him to the Emergency Department for further evaluation. Patient reports prior to experiencing this chest pain/discomfort he has been feeling great and at his baseline normal. Patient denies any recent infections, fevers, chills, diaphoresis, headache, lightheadedness, dizziness, palpitations, shortness of breath, exertional dyspnea, abdominal pain, nausea, vomiting, or experiencing any numbness/tingling/weakness in his extremities. Patient reports only changes that have been made is his public policy manager, Dr. Prather decreased his metoprolol yesterday from 50 mg twice a day down to 25 mg twice a day and he just started that new dose this morning. Upon arrival to the emergency department patient underwent full evaluation. EKG was completed revealing atrial flutter with a slowed ventricular rate of 54 bpm. Chest x-ray was completed revealing central peribronchial cuffing likely bronchitis or chronic asthma, otherwise negative for acute cardiopulmonary process. CBC, coags, and CMP were unremarkable. Troponin less than 0.012. ProBNP 742. Patient being admitted under our services with consultation to cardiology. Review of systems: Pertinent positives and negatives as discussed in HPI, a complete review of systems was performed and all other systems are negative. Physical exam: Vital signs reviewed and stable. General: Nontoxic, no distress and appears stated age. Derm: Skin warm and dry, normal coloration for ethnicity. Head: Atraumatic, normocephalic and symmetric. Eyes: EOMs intact, no lid lag, and anicteric sclera Mouth: no lip lesions, mucus membranes moist Cardiovascular: regular rate and rhythm with normal S1S2, no murmur, positive posterior tibial pulses bilaterally, and cap refill < 2 seconds. Lungs: Respirations even, regular, and unlabored on room air. Lungs CTA bilaterally, no rhonchi, no rales, no wheezing, and no accessory muscle usage. Abdominal: soft, nontender to palpation, no guarding, no appreciable organomegaly Ext: ROM intact. No gross muscle atrophy, no edema, no contractures Neuro: Speech clear, face symmetrical and CN II-XII grossly intact with no noted focal neuro deficits Psych: Alert and oriented to person, place, time, and situation. Appropriate and pleasant affect. Assessment and Plan of Care: Chest pain, rule out acute coronary event Atrial flutter with a slowed ventricular rate Hypertension Hyperlipidemia Chronic Systolic heart failure with EF of 40-45% -Cardiology consulted, appreciate further recommendations -Telemetry monitoring -Trend troponins -Cardiac diet, NPO at midnight -Continue cardiac medication regimen with Eliquis, Aspirin, atorvastatin, amiodarone, and metoprolol -Lipid profile obtained 10/02/21 revealed an elevated LDL of 131.1 -Echocardiogram was completed 10/02/21 revealing an EF of 40-45% with moderate global hypokinesis and mild mitral regurgitation. History of prostate cancer -Patient reports has been in remission since 2019 -Continue daily medication regimen with Flomax The patient is admitted with an anticipated less than 2 midnight stay for evaluation of chest pain CODE STATUS: Full code DVT prophylaxis: Eliquis Discussed with: Patient and RN Anticipated discharge date: Clinical course to determine Anticipated discharge place: Home A total of 40 minutes was spent on the care of this complex patient more than 50% of the time was spent in counseling and care coordination. I reviewed the documentation as provided by the KIM above, who is the original author of this note. I agree with the documented assessment and plan, with the following changes: none Past Medical History Past Medical History: Prostate Disorder Additional Past Medical History / Comment(s): prostate cancer History of Any Multi-Drug Resistant Organisms: None Reported Past Surgical History: No Surgical Hx Reported Past Anesthesia/Blood Transfusion Reactions: Unable to Obtain Past Psychological History: No Psychological Hx Reported Smoking Status: Never smoker Past Alcohol Use History: Daily, Occasional Past Drug Use History: None Reported - Past Family History Family Family Medical History: No Reported History Medications and Allergies Home Medications Medication Instructions Recorded Confirmed Type Tamsulosin HCl [Flomax] 0.4 mg PO BID 10/01/21 10/24/21 History Losartan [Cozaar] 25 mg PO HS #30 tab 10/03/21 10/24/21 Rx Amiodarone [Cordarone] 200 mg PO AC-BID 10/24/21 10/24/21 History Apixaban [Eliquis] 5 mg PO AC-BID 10/24/21 10/24/21 History Metoprolol Tartrate [Lopressor] 25 mg PO AC-BID 10/24/21 10/24/21 History Allergies Allergy/AdvReac Type Severity Reaction Status Date / Time No Known Allergies Allergy Verified 10/24/21 18:11 Physical Exam Osteopathic Statement: *. No significant issues noted on an osteopathic structural exam other than those noted in the History and Physical/Consult. Vitals: Vital Signs Pulse Resp BP Pulse Ox 10/24/21 14:50 55 L 20 150/82 100 Intake and Output 10/24/21 10/24/21 10/24/21 06:59 14:59 22:59 Other: Weight 95.254 kg Results CBC & Chem 7: 10/24/21 14:48 10/24/21 14:48
[2021-10-24] MEDS: AMIODARONE 200 MG TAB PO SCH (19:42)
[2021-10-24] MEDS: APIXABAN 5 MG TAB PO SCH (19:42)
[2021-10-24] MEDS: TAMSULOSIN 0.4 MG CAP.ER.24H PO SCH (19:43)
[2021-10-24] MEDS: SODIUM CHLORIDE 0.9% 1,000 ML IV SCH (19:44)
[2021-10-24] MEDS ORDERED: LOSARTAN 25 MG TAB PO SCH (21:00)
[2021-10-25] MEDS: SODIUM CHLORIDE 0.9% 1,000 ML IV SCH (06:30)
[2021-10-25] MEDS ORDERED: METOPROLOL TARTRATE 25 MG TAB PO SCH (07:30)
[2021-10-25 07:56] VITALS: BP 128/87; PULSE 74; RESP 14; TEMP 97.7
[2021-10-25] MEDS: AMIODARONE 200 MG TAB PO SCH (08:28)
[2021-10-25] MEDS: APIXABAN 5 MG TAB PO SCH (08:28)
[2021-10-25] MEDS: TAMSULOSIN 0.4 MG CAP.ER.24H PO SCH (08:28)
[2021-10-25] MEDS ORDERED: ATORVASTATIN 40 MG TAB PO SCH (09:00)
[2021-10-25] MEDS ORDERED: ASPIRIN 81 MG PO SCH (09:00)
--- NOTE | 2021-10-25 11:25 | P.CRDCN ---
History of Present Illness Consult date: 10/25/21 History of present illness: HISTORY OF PRESENT ILLNESS: This is a 71-year-old male with a past medical history significant for persistent atrial flutter and alcohol abuse. Patient follows in the office with Dr. Prather. We have been asked to see the patient in consultation for chest pain. Patient examined at the bedside. Patient states yesterday he began having some very mild chest discomfort without radiation or shortness of breath. The patie nt went to his primary care physician who was concerned and referred the patient to the emergency room. At the time of examination, the patient denies any chest pain or pressure. He denies shortness of breath. Telemetry reveals atrial flutter with controlled ventricular rate. The patient was recently diagnosed with atrial flutter. He was started on anticoagulation approximately 3 weeks ago. He is scheduled for outpatient cardioversion with Dr. Prather on 10/30/2021. * EKG reveals atrial flutter with controlled ventricular rate * Chest xray some central peribronchial cuffing may be seen with bronchitis or chronic asthma. Otherwise no acute process seen. * Laboratory data: WBC 10.3. Hemoglobin 15.7. Platelet count 251. Sodium 137. Potassium 5.0. BUN 15. Creatinine 0.80. Troponin negative 3. ProBNP 742. * Current home cardiac medications include Lipitor 40 mg daily, amiodarone 200 mg twice a day, a liquid 5 mg twice a day, losartan 25 mg at night, and metoprolol tartrate 25 mg twice a day * Most recent echocardiogram obtained in September 2021 revealed ejection fraction 42%, global decrease in contractility, no pulmonary hypertension REVIEW OF SYSTEMS: At the time of my exam: CONSTITUTIONAL: Denies fever or chills. HEENT: Denies blurred vision, vision changes, or eye pain. Denies hemoptysis CARDIOVASCULAR: Denies chest pain. Denies orthopnea. Denies PND. Denies palpitations RESPIRATORY: Denies shortness of breath. GASTROINTESTINAL: Denies abdominal pain. Denies nausea or vomiting. HEMATOLOGIC: Denies bleeding disorders. GENITOURINARY: Denies any blood in urine. SKIN: Denies pruitis. Denies rash. PHYSICAL EXAM: VITAL SIGNS: Reviewed. GENERAL: Well-developed in no acute distress. HEENT: Head is normocephalic. Pupils are equal, round. Sclerae anicteric. Mucous membranes of the mouth are moist. Neck supple. No JVD or thyromegaly LUNGS: Respirations even and unlabored. Lungs essentially clear to auscultation bilaterally. HEART: Irregular rate and rhythm. S1 and S2 heard. ABDOMEN: Soft. Nondistended. Nontender. EXTREMITIES: Normal range of motion. No clubbing or cyanosis. Peripheral pulses intact. No lower extremity edema NEUROLOGIC: Awake and alert. Oriented x 3. ASSESSMENT: Chest pain, troponins negative 3 Persistent typical atrial flutter with controlled ventricular rate History of alcohol abuse PLAN: Acute coronary event has been ruled out Continue home cardiac medications Patient may be discharged home today from a cardiac standpoint He is scheduled for outpatient cardioversion on 10/30/[address] Prather We will sign off. Please reconsult if needed. Nurse practitioner note has been reviewed by physician. Signing provider agrees with the documented findings, assessment, and plan of care. Past Medical History Past Medical History: Prostate Disorder Additional Past Medical History / Comment(s): prostate cancer History of Any Multi-Drug Resistant Organisms: None Reported Past Surgical History: No Surgical Hx Reported Past Anesthesia/Blood Transfusion Reactions: Unable to Obtain Past Psychological History: No Psychological Hx Reported Smoking Status: Never smoker Past Alcohol Use History: Daily, Occasional Past Drug Use History: None Reported - Past Family History Family Family Medical History: No Reported History Medications and Allergies Home Medications Medication Instructions Recorded Confirmed Type Tamsulosin HCl [Flomax] 0.4 mg PO BID 10/01/21 10/24/21 History Losartan [Cozaar] 25 mg PO HS #30 tab 10/03/21 10/24/21 Rx Amiodarone [Cordarone] 200 mg PO AC-BID 10/24/21 10/24/21 History Apixaban [Eliquis] 5 mg PO AC-BID 10/24/21 10/24/21 History Metoprolol Tartrate [Lopressor] 25 mg PO AC-BID 10/24/21 10/24/21 History Allergies Allergy/AdvReac Type Severity Reaction Status Date / Time No Known Allergies Allergy Verified 10/24/21 18:11 Physical Exam Vitals: Vital Signs Temp Pulse Pulse Resp BP BP Pulse Ox 10/25/21 08:00 74 14 10/25/21 07:57 95 10/25/21 07:00 97.7 F 74 14 128/87 94 L 10/25/21 04:43 97.4 F L 63 16 128/81 94 L 10/24/21 22:00 97.8 F 97 18 165/65 97 10/24/21 19:39 64 135/82 98 10/24/21 18:58 97.1 F L 59 L 16 134/82 99 10/24/21 18:46 75 10/24/21 14:50 55 L 20 150/82 100 Intake and Output 10/24/21 10/25/21 10/25/21 22:59 06:59 14:59 Intake Total 118 Balance 118 Intake: Oral 118 Other: # Voids 2 1 Weight 95.254 kg Results 10/24/21 14:48 10/24/21 14:48 Cardiac Enzymes 10/24/21 10/24/21 10/24/21 Range/Units 14:48 14:48 18:01 AST 30 (17-59) U/L Troponin I <0.012 <0.012 (0.000-0.034) ng/mL 10/24/21 Range/Units 20:24 AST (17-59) U/L Troponin I <0.012 (0.000-0.034) ng/mL Coagulation 10/24/21 Range/Units 14:48 PT 11.2 (9.0-12.0) sec APTT 26.5 (22.0-30.0) sec CBC 10/24/21 Range/Units 14:48 WBC 10.3 (3.8-10.6) k/uL RBC 5.17 (4.30-5.90) m/uL Hgb 15.7 (13.0-17.5) gm/dL Hct 49.0 (39.0-53.0) % Plt Count 251 (150-450) k/uL Comprehensive Metabolic Panel 10/24/21 Range/Units 14:48 Sodium 137 (137-145) mmol/L Potassium 5.0 (3.5-5.1) mmol/L Chloride 106 (98-107) mmol/L Carbon Dioxide 23 (22-30) mmol/L BUN 15 (9-20) mg/dL Creatinine 0.80 (0.66-1.25) mg/dL Glucose 82 (74-99) mg/dL Calcium 8.9 (8.4-10.2) mg/dL AST 30 (17-59) U/L ALT 20 (4-49) U/L Alkaline Phosphatase 48 (38-126) U/L Total Protein 7.2 (6.3-8.2) g/dL Albumin 4.5 (3.5-5.0) g/dL Current Medications Generic Name Dose Route Start Last Admin Trade Name Freq PRN Reason Stop Dose Admin Acetaminophen 650 mg 10/24/21 18:04 10/24/21 22:22 Acetaminophen Tab 325 Mg Tab PO 650 mg Q6HR PRN Administration Mild Pain or Fever > 100.5 Amiodarone HCl 200 mg 10/24/21 18:30 10/25/21 08:28 Amiodarone 200 Mg Tab PO 200 mg AC-BID KRISSY Administration Apixaban 5 mg 10/24/21 18:15 10/25/21 08:28 Apixaban 5 Mg Tab PO 5 mg AC-BID KRISSY Administration Protocol Aspirin 81 mg 10/25/21 09:00 10/25/21 08:28 Aspirin 81 Mg PO 81 mg DAILY KRISSY Administration Atorvastatin Calcium 40 mg 10/25/21 09:00 10/25/21 08:28 Atorvastatin 40 Mg Tab PO 40 mg DAILY KRISSY Administration Sodium Chloride 1,000 mls @ 75 mls/hr 10/24/21 17:30 10/25/21 06:30 Saline 0.9% IV Not Given .[id number] KRISSY Losartan Potassium 25 mg 10/24/21 21:00 10/24/21 22:21 Losartan 25 Mg Tab PO 25 mg HS KRISSY Administration Metoprolol Tartrate 25 mg 10/25/21 07:30 10/25/21 08:28 Metoprolol Tartrate 25 Mg Tab PO 25 mg AC-BID KRISSY Administration Naloxone HCl 0.2 mg 10/24/21 17:26 Naloxone 0.4 Mg/Ml 1 Ml Vial IV Q2M PRN Opioid Reversal Naloxone HCl 0.2 mg 10/24/21 18:04 Naloxone 0.4 Mg/Ml 1 Ml Vial IVP Q2M PRN Opioid Reversal Tamsulosin HCl 0.4 mg 10/24/21 21:00 10/25/21 08:28 Tamsulosin 0.4 Mg Cap.Er.24h PO 0.4 mg BID KRISSY Administration Intake and Output 10/24/21 10/25/21 10/25/21 22:59 06:59 14:59 Intake Total 118 Balance 118 Intake: Oral 118 Other: # Voids 2 1 Weight 95.254 kg 10/24/21 14:48 10/24/21 14:48
--- NOTE | 2021-10-25 11:30 | P.DS ---
Providers Date of admission: 10/24/21 18:01 Expected date of discharge: 10/25/21 Attending physician: Juanito Ibarra MD Consults: 10/24/21 17:26 Consult Physician Urgent Consulting Provider: [facility] Consult Reason/Comments: chest pain Do you want consulting provider notified?: Yes Primary care physician: Hal Gutiérrez [facility] Course: Discharge Diagnosis: Chest pain, acute coronary event ruled out. Continue cardiac medication regimen with atorvastatin, losartan, metoprolol, amiodarone, and Eliquis. Pt will need to follow up next week as scheduled with Dr. Prather for scheduled outpatient cardioversion. In addition patient was instructed to monitor blood pressure on a daily basis and document findings in a daily log/Journal to bring with him to his next doctor's appointment. In addition to monitoring blood pressure, patient was also instructed to assess heart rate prior to taking morning medications. 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 Atrial flutter with a slowed ventricular rate Hypertension, continue daily medication regimen with Hyperlipidemia, continue daily medication regimen with atorvastatin 40 mg daily. Chronic Systolic heart failure with EF of 40-45% History of prostate cancer. Patient reports has been in remission since 2019, please continue to follow up for yearly examinations outpatient with urologist. Continue daily medication regimen with [facility] Course: Patient is a 71-year-old male with a past medical history of prostate cancer reportedly in remission since 2019 and recently diagnosed atrial flutter, dyslipidemia, and systolic congestive heart failure with EF 40-45%. Patient presented to the emergency department with a chief complaint of chest pain. Patient reports he was outside this morning just watering his garden and came in and was relaxing in the recliner. Patient states he began developing dull left- sided chest pain/pressure. Patient reports this pain persisted and he went to see his PCP, Dr. Gutiérrez whom did an EKG and sent him to the Emergency Department for further evaluation. Patient reports prior to experiencing this chest pain/discomfort he has been feeling great and at his baseline normal. Patient denies any recent infections, fevers, chills, diaphoresis, headache, lightheadedness, dizziness, palpitations, shortness of breath, exertional dyspnea, abdominal pain, nausea, vomiting, or experiencing any numbness/tingling/weakness in his extremities. 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 Prather decreased his metoprolol yesterday from 50 mg twice a day down to 25 mg twice a day and he just started that new dose this morning. Upon arrival to the emergency department patient underwent full evaluation. EKG was completed revealing atrial flutter with a slowed ventricular rate of 54 bpm. Chest x-ray was completed revealing central peribronchial cuffing likely bronchitis or chronic asthma, otherwise negative for acute cardiopulmonary process. CBC, coags, and CMP were unremarkable. Troponin less than 0.012. ProBNP 742. Patient being admitted under our services with consultation to cardiology. He was monitored overnight troponin remain negative at less than 0.0123 draws. Patient free from any chest pain or complaints this morning. He was evaluated by cardiology. Cardiology Physical exam: Vital signs reviewed and stable. General: Nontoxic, no distress and appears stated age. Derm: Skin warm and dry, normal coloration for ethnicity. Head: Atraumatic, normocephalic and symmetric. Eyes: EOMs intact, no lid lag, and anicteric sclera Mouth: no lip lesions, mucus membranes moist Cardiovascular: regular rate and rhythm with normal S1S2, no murmur, positive posterior tibial pulses bilaterally, and cap refill < 2 seconds. Lungs: Respirations even, regular, and unlabored on room air. Lungs CTA bilaterally, no rhonchi, no rales, no wheezing, and no accessory muscle usage. Abdominal: soft, nontender to palpation, no guarding, no appreciable organomegaly Ext: ROM intact. No gross muscle atrophy, no edema, no contractures Neuro: Speech clear, face symmetrical and CN II-XII grossly intact with no noted focal neuro deficits Psych: Alert and oriented to person, place, time, and situation. Appropriate and pleasant affect. A total of 37 minutes of time were spent preparing this complex discharge summary. Pt was discharged on 10/25/21 11:19 AM. I reviewed the documentation as provided by the KIM above, who is the original author of this note. I agree with the documented assessment and plan, with the following changes: none Patient Condition at Discharge: Stable Plan - Discharge Summary Discharge Rx Participant: Yes New Discharge Prescriptions: Continue Tamsulosin HCl [Flomax] 0.4 mg PO BID Losartan [Cozaar] 25 mg PO HS #30 tab Metoprolol Tartrate [Lopressor] 25 mg PO AC-BID Amiodarone [Cordarone] 200 mg PO AC-BID Apixaban [Eliquis] 5 mg PO AC-BID Discharge Medication List Tamsulosin HCl [Flomax] 0.4 mg PO BID 10/01/21 [History] Losartan [Cozaar] 25 mg PO HS #30 tab 10/03/21 [Rx] Amiodarone [Cordarone] 200 mg PO AC-BID 10/24/21 [History] Apixaban [Eliquis] 5 mg PO AC-BID 10/24/21 [History] Metoprolol Tartrate [Lopressor] 25 mg PO AC-BID 10/24/21 [History] Follow up Appointment(s)/Referral(s): Truman Prather MD [STAFF PHYSICIAN] - 1 Week Hal Gutiérrez MD [Primary Care Provider] - 1-2 days Patient Instructions/Handouts: Atrial Flutter (DC) Activity/Diet/Wound Care/Special Instructions: Activity: As tolerated. Take breaks as needed. Diet: Heart healthy and carb consistent diet. Avoid salts, or foods with hidden salts such as canned or boxed foods and frozen dinners. Extra salt makes your heart work harder and traps the fluid in your body for longer. Special Instructions: Take all of your medications as directed and remember to keep all of your doctor's appointments and follow-up as needed. It is important to follow up next week with Dr. Prather for scheduled outpatient cardioversion. Also please monitor your blood pressure on a daily basis and document findings in a daily log/Journal to bring with you to your next doctor's appointment. In addition to monitoring your blood pressure, please assess your heart rate prior to taking morning medications. If your heart rate is less than 60 bpm please hold the metoprolol and notify your compressor station engineer chief office. Thank you for allowing us to participate in your care, it was truly a pleasure having you for our patient!!! Discharge Disposition: HOME SELF-CARE
== END 2021-10-25 13:31 | disposition home or self-care (01) ==
LOC: EC 14:31 → 6NMEDSUR 18:01
PROVIDERS: ADMIT Internal Medicine; ATTEND Internal Medicine
DX: R07.89 Other chest pain (principal); I48.3 Typical atrial flutter; I11.0 Hypertensive heart disease with heart failure; I50.22 Chronic systolic (congestive) heart failure; E78.5 Hyperlipidemia, unspecified; F10.10 Alcohol abuse, uncomplicated; E78.00 Pure hypercholesterolemia, unspecified; Z79.01 Long term (current) use of anticoagulants; Z79.899 Other long term (current) drug therapy; Z85.46 Personal history of malignant neoplasm of prostate
CPT/HCPCS: 99285; 36415; 93005; 83880; 80053; 84443; 83735; 84484; 85025; 85610; 85730; 71046; G0378 ×2

== ENCOUNTER 2021-10-30 06:35 | Day surgery (SDC) | payer MEDICARE ==
[2021-10-29 08:33] VITALS: BMI 28.5
[~2021-10-30 06:35] MED LIST: SODIUM CHLORIDE 0.9% 1,000 ML IV SCH
[2021-10-30 07:05] LABS: Glucose,Whole Blood 109 mg/dL (70-110)
[2021-10-30 07:07] VITALS: TEMP 96.9
[2021-10-30] MEDS ORDERED: PROPOFOL 10 MG/ML 20 ML VIAL IV ONE (07:32)
[2021-10-30] MEDS ORDERED: PHENYLEPHRINE-0.9% NACL SYG 1,000 MCG/10 ML SYRINGE ONE (07:32)
[2021-10-30] MEDS ORDERED: SODIUM CHLORIDE 0.9% 1,000 ML IV ONE (08:10)
--- NOTE | 2021-10-30 09:42 | CC ---
CARDIAC CATHETERIZATION REPORT PROCEDURE: Electrical cardioversion. INDICATIONS: Persistent atrial fib in spite of pharmacological efforts. CLINICAL INFORMATION: Mr. Edd Mcconnell is a 71-year-old gentleman with a recent onset atrial fibrillation and heart failure, probably related to some alcoholism. He had nonischemic cardiomyopathy type picture. Rate control was achieved, adequately anticoagulated and amiodarone 200 mg b.i.d. was started. However, patient persisted in atrial flutter which was atypical flutter and fibrillation. He was brought in for elective cardioversion after adequate anticoagulation. PROCEDURE NOTE: Under the influence of [id number] intravenous anesthetic agent with the attendance of the anesthesiologist, a single shock was delivered with anterior and posterior patches. A 100-joule shock was delivered synchronized and the patient converted to sinus rhythm. He remained hemodynamically somewhat unstable requiring 160 mg of phenylephrine, pressure is 94/60. He is awake, slightly groggy, but remains in sinus rhythm at 42 beats per minute. Once he is fully awake, ambulatory and has had a meal, he will be discharged later on today. He will be going on amiodarone 200 mg every other day, which is a reduction and also metoprolol tartrate will be 50 mg half tablet in the a.m. only. I will see him in the office as scheduled on November 05. Details were discussed with the patient and . I expect he will be discharged later on today after he is up and about ambulatory and asymptomatic. MMWANDERL / CECYN: [id number] /
[2021-10-30 10:34] VITALS: RESP 16
[2021-10-30 10:37] VITALS: BP 101/63; PULSE 43
== END 2021-10-30 10:10 | disposition home or self-care (01) ==
LOC: CATHCVL 06:35
PROVIDERS: ATTEND Internal Medicine Interventional Cardiology
DX: I48.19 Other persistent atrial fibrillation (principal); I48.4 Atypical atrial flutter; Z20.822 Contact with and (suspected) exposure to COVID-19; Z82.49 Family history of ischemic heart disease and other diseases of the circulatory system; I42.8 Other cardiomyopathies; Z79.01 Long term (current) use of anticoagulants; E11.9 Type 2 diabetes mellitus without complications; Z85.46 Personal history of malignant neoplasm of prostate
CPT/HCPCS: 92960; 87635; J2370; J2704

== ENCOUNTER → 2021-11-20 | Outpatient (CLI) | payer MEDICARE ==
[2021-11-20 19:22] LABS: HCT 45.7 % (39.6-50.0); HGB 14.9 g/dL (13.0-17.0); MCHC 32.6 g/dL (32.0-37.0); MCV 92.1 fL (80.0-97.0); Mean Platelet Volume 10.6 fL (9.5-12.2); NRBC Per 100 WBC 0 /100 WBCS (0.0-0.0); Platelet Count 272 X 10*3/uL (140-440); RBC 4.96 X 10*6/uL (4.40-5.60); RDW 13.2 % (11.5-14.5); WBC 9.33 X 10*3/uL (4.50-10.00)
[2021-11-20 19:38] LABS: African American GFR (CKD) 99.9 (60.0-200.0); Anion Gap 10.9 mmol/L (10.00-18.00); Blood Urea Nitrogen 12.8 mg/dL (9.0-27.0); Carbon Dioxide 22.1 mmol/L (20.0-27.5); Non-African American GFR(CKD) 86.2 (60.0-200.0); Potassium 4.8 mmol/L (3.5-5.5)
== END | disposition home or self-care (01) ==
LOC: LABPAT 11:05
PROVIDERS: ATTEND Internal Medicine Interventional Cardiology
DX: Z01.812 Encounter for preprocedural laboratory examination (principal); I48.4 Atypical atrial flutter; I42.8 Other cardiomyopathies
CPT/HCPCS: 80051; 82565; 84520; 85027

== ENCOUNTER → 2021-11-22 | Day surgery (SDC) | payer MEDICARE ==
[2021-11-21 10:20] VITALS: BMI 26.4
[~2021-11-22] MED LIST changes: +ALPRAZolam 0.25 MG TAB PO PRN; +ALPRAZolam 0.5 MG TAB PO PRN; +ASPIRIN 325 MG TAB PO STA; +HEPARIN SODIUM 1,000 UN/ML (10ML VL) IV ONE; +IOPAMIDOL-370 100ML BTL INJ ONE; +LIDOCAINE 1% INJ 10MG/ML (5 ML VIAL-PF) SQ ONE; +METOPROLOL TARTRATE 25 MG TAB PO STA; +MIDAZOLAM 2 MG/2 ML VIAL IV ONE; +NITROGLYCERIN SL TABS 0.4 MG TAB SUBLINGUAL PRN; +SODIUM CHLORIDE 0.9% 1,000 ML in EMPTY BAG 1 BAG IV SCH; +VERAPAMIL SYRINGE (5 MG/10 ML) INTRAARTER ONE
[2021-11-22 07:19] LABS: Glucose,Whole Blood 121 mg/dL (70-110)
[2021-11-22 07:34] VITALS: TEMP 97.8
--- NOTE | 2021-11-22 08:06 | P.CARDCATH ---
Description of Procedure: History: Patient was referred for cardiac catheterization to evaluate for CAD. This patient has a recent onset persistent atypical atrial flutter and also atrial fibrillation. He had a cardioversion performed on October 30 he converted to sinus rhythm but went back into atrial flutter. He is symptomatic with shortness of breath and ejection fraction is 45%. He has refrained from alcohol. He is well anticoagulated. He has type 2 diabetes, recent onset atrial flutter/fibrillation persistent unresponsive to electrical cardioversion and amiodarone. He was advised coronary angiography to rule out obstructive CAD in view of an abnormal stress test with inferior wall partially reversible defect. He is going to be seen by outpatient coder for possible pulmonary vein isolation and flutter ablation. The risks and benefits options and rationale were explained and he was brought in for the cardiac cath electively after he was agreeable to proceed with the procedure understanding the risks and benefits options and rationale. Procedure Details: The risks, benefits, complications, treatment options, and expected outcomes were discussed with the patient. The patient and/or family concurred with the proposed plan, giving informed consent. Patient was brought to the biology laboratory assistant after IV hydration was begun and oral premedication was given. Patient was further sedated with midazolam. Patient was prepped and draped in the usual manner. Under strict aseptic precautions and local anesthesia a 6 Croatian introducer was placed in the right radial artery. Using a JL 3/5 and a JR 4/0 catheters I performed coronary angiography and the same JR catheter was used to check LV pressures and LV gram was not performed. After the procedure was completed the sheaths and catheters were all removed. Hemostasis was achieved with TR band. Saturation in the fingers of the right hand was about 94%. Moderate conscious sedation time was 17 minutes. Patient's oxygen saturation hemodynamics and EKG were monitored closely. Findings: Hemodynamics: The left ventricle end-diastolic pressure was 90 10 mmHg without any gradient across aortic valve Left Main: Short patent disease-free vessel that bifurcates into LAD and circumflex LAD: This is a relatively small caliber smaller distribution vessel that bifurcates very proximally into a diagonal branch and continuation of LAD. Has minor irregularities no significant disease runs towards the apex. The diagonal is also free of significant disease CIRC: A very large super dominant vessel has minor irregularities gives obtuse minor branches and distally gives off a PDA and posterior lateral branch no significant disease only minor irregularities noted RCA: Nondominant small caliber smaller distribution vessel LV: Not performed Closure Device: TR band Complications: None Estimated Blood Loss: Minimal Impression: Left dominant system, normal filling pressures no gradient across aortic valve minor noncritical irregularities no significant obstructive CAD. LAD is a relatively smaller bifurcates into a diagonal branch proximally and runs towards the apex. RCA small and nondominant. Circumflex is large and free of significant disease Pre Procedure Diagnosis: Nonischemic cardiomyopathy with abnormal stress test Final Post Procedure Diagnosis: Nonischemic cardiomyopathy Recommendation: Continued medical therapy and referable for electrophysiology evaluation possible pulmonary vein isolation and flutter ablation. I discussed the findings in detail with the patient and I expect he'll be discharged today and I will see him in about a week or less in the office. Discharge instructions were given Complications: None; patient tolerated the procedure well. Disposition: Pacu - hemodynamically stable. Condition: Stable Discharge Disposition: Discharge patient home later on today.
[2021-11-22 10:03] VITALS: RESP 16
[2021-11-22 14:19] VITALS: BP 115/68; PULSE 77
== END | disposition home or self-care (01) ==
LOC: CATHCVL 06:16
PROVIDERS: ATTEND Internal Medicine Interventional Cardiology
DX: I42.8 Other cardiomyopathies (principal); I48.4 Atypical atrial flutter; I48.91 Unspecified atrial fibrillation; E11.9 Type 2 diabetes mellitus without complications; Z79.01 Long term (current) use of anticoagulants; Z20.822 Contact with and (suspected) exposure to COVID-19
CPT/HCPCS: 93458; 87635; C1769; C1894; J2250; J2001; J1644; Q9967

== ENCOUNTER → 2022-01-02 | Outpatient (CLI) | payer MEDICARE ==
[2022-01-02 14:58] LABS: HCT 43.4 % (39.6-50.0); HGB 14.2 g/dL (13.0-17.0); MCH 30.6 pg (27.0-32.0); MCHC 32.7 g/dL (32.0-37.0); MCV 93.5 fL (80.0-97.0); NRBC Per 100 WBC 0 /100 WBCS (0.0-0.0); Platelet Count 272 X 10*3/uL (140-440); RBC 4.64 X 10*6/uL (4.40-5.60); RDW 13.7 % (11.5-14.5); WBC 9.23 X 10*3/uL (4.50-10.00)
[2022-01-02 16:10] LABS: Anion Gap 11.2 mmol/L (10.00-18.00); Blood Urea Nitrogen 12.1 mg/dL (9.0-27.0); Carbon Dioxide 21.8 mmol/L (20.0-27.5); Non-African American GFR(CKD) 80.3 (60.0-200.0); Potassium 4.8 mmol/L (3.5-5.5)
== END | disposition home or self-care (01) ==
LOC: LABPAT 08:57
PROVIDERS: ATTEND Internal Medicine Clinical Cardiac Electrophysiology
DX: Z01.812 Encounter for preprocedural laboratory examination (principal); I42.8 Other cardiomyopathies; I48.3 Typical atrial flutter
CPT/HCPCS: 80051; 82565; 84520; 85027

== ENCOUNTER 2022-01-07 13:14 | Day surgery (SDC) | payer MEDICARE ==
[~2022-01-07 13:14] MED LIST changes: -ALPRAZolam 0.25 MG TAB PO PRN; -ALPRAZolam 0.5 MG TAB PO PRN; -ASPIRIN 325 MG TAB PO STA; +DEXAMETHASONE SOD PHOSPHATE 4 MG/ML 1 ML VIAL IV ONE; -HEPARIN SODIUM 1,000 UN/ML (10ML VL) IV ONE; +HYDROmorphone 0.5 MG/0.5 ML SYRINGE IVP PRN; -IOPAMIDOL-370 100ML BTL INJ ONE; -LIDOCAINE 1% INJ 10MG/ML (5 ML VIAL-PF) SQ ONE; -METOPROLOL TARTRATE 25 MG TAB PO STA; -MIDAZOLAM 2 MG/2 ML VIAL IV ONE; -NITROGLYCERIN SL TABS 0.4 MG TAB SUBLINGUAL PRN; +ONDANSETRON 4 MG/2 ML VIAL IVP ONE; -SODIUM CHLORIDE 0.9% 1,000 ML IV SCH; -SODIUM CHLORIDE 0.9% 1,000 ML in EMPTY BAG 1 BAG IV SCH; -VERAPAMIL SYRINGE (5 MG/10 ML) INTRAARTER ONE
[2022-01-07] MEDS: SODIUM CHLORIDE 0.9% 1,000 ML IV SCH (13:47)
[2022-01-07 13:52] LABS: Glucose,Whole Blood 92 mg/dL (70-110)
[2022-01-07] MEDS ORDERED: LIDOCAINE 2% INJ 20 MG/ML (2 ML VIAL) ONE (15:03)
[2022-01-07] MEDS ORDERED: PROPOFOL 10 MG/ML 20 ML VIAL IV ONE (15:03)
[2022-01-07] MEDS ORDERED: SUCCINYLCHOLINE CHLORIDE 200 MG/10 ML VIAL IV ONE (15:03)
[2022-01-07] MEDS ORDERED: ROCURONIUM 10 MG/ML (5 ML VIAL) IV ONE (15:03)
[2022-01-07] MEDS ORDERED: MIDAZOLAM 2 MG/2 ML VIAL ONE (15:03)
[2022-01-07] MEDS ORDERED: PHENYLEPHRINE-0.9% NACL SYG 1,000 MCG/10 ML SYRINGE ONE (15:03)
[2022-01-07] MEDS ORDERED: NEOSTIGMINE 1 MG/ML 10 ML VIAL ONE (15:03)
[2022-01-07] MEDS ORDERED: ISOPROTERENOL 250 MCG/1.25 ML SYR IV ONE (15:03)
[2022-01-07] MEDS ORDERED: ePHEDrine 50 MG/ML 1 ML VIAL ONE (15:03)
[2022-01-07] MEDS ORDERED: GLYCOPYRROLATE 0.2 MG/ML 2 ML VIAL ONE (15:03)
[2022-01-07] MEDS ORDERED: fentaNYL (PF) 50 MCG/ML 2 ML AMP ONE (15:03)
[2022-01-07] MEDS ORDERED: LIDOCAINE 1% INJ 10MG/ML (20 ML MDV) SQ ONE (15:48)
[2022-01-07] MEDS ORDERED: HEPARIN SODIUM (1,000 UNIT/ML) 1,000 UNIT in SODIUM CHLORIDE 0.9% 1,000 ML IRRIGATION ONE (16:45)
[2022-01-07] MEDS ORDERED: ACETAMINOPHEN IV (For NPO) 1,000 MG in EMPTY BAG 1 BAG IVPB ONE (17:14)
[2022-01-07] MEDS ORDERED: ACETAMINOPHEN TAB 325 MG TAB PO PRN (17:14)
--- NOTE | 2022-01-07 17:20 | P.HPCAR ---
History of Present Illness This is Dr. Long dictating an H/P on this patient The patient was interviewed and examined IMPRESSION / ASSESSMENT: Typical atrial flutter Symptomatic with tiredness and fatigue and lack of energy even though it's rate controlled Normal coronary arteries Right bundle branch block left anterior fascicular block Underlying AV node disease Mild cardiomyopathy PLAN: EP study and atrial flutter ablation Stop metoprolol thereafter and initiate Coreg post ablation Complete cessation from alcohol use HPI Patient continues to complain of tiredness and fatigue (MG He remains in atrial flutter with a controlled ventricular response No dizziness lightheadedness or loss of consciousness No chest pain No fever chills cough ROS: No fever chills or rigors, no cough, phlegm or expectoration, no nausea, vomiting or diarrhea, no hematuria, dysuria, no musculoskeletal complaints, no strokes or seizures, no skin lesions. EXAMINATION: Afebrile 97.9F pulse rate in the 80s blood pressure 119/81 Heart sounds are irregular Breath sounds are clear no rhonchi no crackles No JVD no carotid bruits No lower extremity edema REVIEW OF LABS, ECG & MEDICAL DATA Flomax, losartan, ELIQUIS, metformin and metoprolol 25 mg twice daily Physical Exam Vitals: Vital Signs Temp Pulse Resp BP Pulse Ox 01/07/22 14:35 97.9 F 86 16 119/81 99 Intake and Output 01/07/22 01/07/22 01/07/22 06:59 14:59 22:59 Intake Total 50 0 Balance 50 0 Intake: IV 50 0 Other: Weight 91.3 kg Past Medical History Past Medical History: Atrial Fibrillation, Cancer, Diabetes Mellitus, Hyperlipidemia, Prostate Disorder, Sleep Apnea/CPAP/BIPAP Additional Past Medical History / Comment(s): prostate cancer 2017, no current CPAP, see dr. Long H & P History of Any Multi-Drug Resistant Organisms: None Reported Past Surgical History: No Surgical Hx Reported, Heart Catheterization Additional Past Surgical History / Comment(s): cardioversion 10/30/21, LEG BX ABOUT 40 YEARS AGO, COLONOSCOPY heart cath nov 2021 Past Anesthesia/Blood Transfusion Reactions: No Reported Reaction Smoking Status: Never smoker - Past Family History Brother(s) Family Medical History: Cancer Sister(s) Family Medical History: Cancer Family Family Medical History: No Reported History Physical Examination Vital Signs Temp Pulse Resp BP Pulse Ox 01/07/22 14:35 97.9 F 86 16 119/81 99 Intake and Output 01/07/22 01/07/22 01/07/22 06:59 14:59 22:59 Intake Total 50 0 Balance 50 0 Intake: IV 50 0 Other: Weight 91.3 kg Results Current Medications Generic Name Dose Route Start Last Admin Trade Name Freq PRN Reason Stop Dose Admin Acetaminophen 650 mg 01/07/22 17:14 Acetaminophen Tab 325 Mg Tab PO 02/06/22 17:15 Q6HR PRN Mild Pain (Scale 1 to 3) Apixaban 5 mg 01/07/22 17:30 Apixaban 5 Mg Tab PO 02/06/22 17:31 AC-BID KRISSY Protocol Hydromorphone HCl 0.5 mg 01/07/22 07:00 Hydromorphone 0.5 Mg/0.5 Ml Syringe IVP 01/07/22 23:00 Q5M PRN Phase 1 or 2 - Pain Control Sodium Chloride 1,000 mls @ 20 mls/hr 01/07/22 05:53 01/07/22 13:47 Saline 0.9% IV 02/06/22 05:54 50 mls .Q24H KRISSY Administration Lactated Ringer's 1,000 mls @ 20 mls/hr 01/07/22 05:53 Lactated Ringers IV 02/06/22 05:54 .Q24H KRISSY Acetaminophen 1,000 mg/ IV 100 mls @ 400 mls/hr 01/07/22 17:14 Solution IVPB 01/07/22 17:28 ONCE ONE Losartan Potassium 25 mg 01/07/22 21:00 Losartan 25 Mg Tab PO 02/06/22 21:01 HS KRISSY Metformin HCl 500 mg 01/08/22 09:00 Metformin 500 Mg Tab PO 02/07/22 09:01 DAILY KRISSY Sodium Chloride 12 ml 01/07/22 17:14 Sodium Chloride 0.9% Flush 10 Ml Syringe IV 02/06/22 17:15 Q12HR PRN Line Flush Tamsulosin HCl 0.4 mg 01/07/22 21:00 Tamsulosin 0.4 Mg Cap.Er.24h PO 02/06/22 21:01 BID KRISSY Intake and Output 01/07/22 01/07/22 01/07/22 06:59 14:59 22:59 Intake Total 50 0 Balance 50 0 Intake: IV 50 0 Other: Weight 91.3 kg Patient Weight 01/08/22 06:59 Weight 91.3 kg
--- NOTE | 2022-01-07 17:21 | P.PRLE ---
RE: Edd Mcconnell Dear Hal mcconnell underwent an EP study and ablation for typical atrial flutter with successful termination as well as demonstration of bidirectional block He does have underlying sinus bradycardia which is expected since he had intrinsically rate controlled atrial flutter At this time I have stopped metoprolol and hopefully I can initiate low dose carvedilol to avoid significant bradycardia He must abstain from alcohol use completely and this should result in improvement in his LV function over time He will continue anticoagulation for now Thank you for entrusting me with the care of the patient Warm regards Sincerely Rom Long
--- NOTE | 2022-01-07 17:30 | P.EPPROC ---
- EP Procedure Note Electrophysiology Procedure Note: Diagnosis Symptomatic typical atrial flutter with a controlled response Despite a controlled ventricular response patient complains of tiredness fatigue and lack of energy, patient is on ELIQUIS Result Successful typical atrial flutter ablation. Bidirectional block with differential pacing Sick Sinus Syndrome, sinus bradycardia Abnormal AV node function Plan Continue ELIQUIS continue losartan Stop metoprolol Later we will consider carvedilol Details Patient was brought to the EP lab in fasting state. Written informed consent was obtained prior to the procedure. The seizures performed under general anesthesia Venous sheaths were placed in the right left femoral veins The patient was in typical atrial flutter at the start of study. Tachycardia cycle length 245 ms Coronary sinus catheter was placed. Later catheter was placed in the high right atrium His bundle area and the right ventricle Tachycardia cycle length 245 ms, QRS 121 ms the right bundle branch block pattern Intracardiac echo was performed no left atrial appendage thrombus No pericardial effusion baseline 3-D electro-anatomic mapping was performed The caval tricuspid isthmus was identified The mapping cath was placed in the isthmus Entrainment mapping confirmed isthmus dependency RF ablation was performed from the tricuspid annulus to the IVC Complete anatomic line block was made 40 W, 22nd lesions delivered Complete line of block was made This lead was then interrogated Bidirectional block was proven with differential pacing The split potentials along the line were uniformly split Following that an EP study is performed on and off Isuprel AH interval 60 ms and HV interval 41 ms MD interval 146 ms Sinus node recovery times at 600, 540 ms were 1739 with a prolonged corrected sinus node recovery time Entrance block was noted when pacing at cycle lengths of 504 ms AV node Wenckebach block 480 ms On Isuprel was improved to 310 ms Parahisian pacing revealed a romie response VA Wenckebach block 520 ms No arrhythmias induced on Isuprel and pacing All catheters were removed. Vascade closure was applied Patient of the procedure well without any acute complications
[2022-01-07 17:53] LABS: Glucose,Whole Blood 98 mg/dL (70-110)
[2022-01-07] MEDS: LACTATED RINGERS 1,000 ML IV SCH ×2 (19:51→23:16)
[2022-01-07] MEDS: TAMSULOSIN 0.4 MG CAP.ER.24H PO SCH (19:55)
[2022-01-07] MEDS: APIXABAN 5 MG TAB PO SCH (19:55)
[2022-01-07] MEDS ORDERED: LOSARTAN 25 MG TAB PO SCH (21:00)
[2022-01-08] MEDS: SODIUM CHLORIDE 0.9% 1,000 ML IV SCH (07:40)
--- NOTE | 2022-01-08 07:46 | P.DS ---
Providers Attending physician: Rom Long Primary care physician: [facility] Course: Patient is doing well. He feels a lot better He is in sinus rhythm in the 70s and 80s No chest discomfort dizziness lightheadedness Known current problems no hematoma no swelling Minimal pain Blood pressure 108/60 mmHg pulse rate in the 70s afebrile 98.2F Normal heart sounds soft no S3 gallop no murmurs Lungs no rhonchi no crackles Groins of healed well no hematoma Impression Typical atrial flutter persistent Status post successful atrial flutter ablation with bidirectional block with differential pacing Mild cardiomyopathy Past history of alcohol use Plan line discharge home today Continue ELIQUIS Hold metoprolol for a week Continue losartan Complete abstinence from alcohol use Discharge home later today. Apparently stable and follow-up with Dr. Long a week Patient Condition at Discharge: Stable Plan - Discharge Summary Discharge Rx Participant: No New Discharge Prescriptions: No Action Tamsulosin HCl [Flomax] 0.4 mg PO BID Losartan [Cozaar] 25 mg PO HS #30 tab Metoprolol Tartrate [Lopressor] 25 mg PO BID metFORMIN HCL [Glucophage] 500 mg PO DAILY Apixaban [Eliquis] 5 mg PO AC-BID Discharge Medication List Tamsulosin HCl [Flomax] 0.4 mg PO BID 10/01/21 [History] Losartan [Cozaar] 25 mg PO HS #30 tab 10/03/21 [Rx] Apixaban [Eliquis] 5 mg PO AC-BID 10/24/21 [History] Metoprolol Tartrate [Lopressor] 25 mg PO BID 10/24/21 [History] metFORMIN HCL [Glucophage] 500 mg PO DAILY 10/29/21 [History] Follow up Appointment(s)/Referral(s): Rom Long MD [STAFF PHYSICIAN] - 1 Week Activity/Diet/Wound Care/Special Instructions: Post EP study - Ablation instructions 1. Keep access sites dry for 2 days. 2. No heavy lifting or straining for 2 days. 3. Avoid bending the hips repeatedly for 2 days. 4. You may go up and down stairs slowly Call if the following is noted 1. Bleeding, increasing swelling or pain at the access sites. 2. Increasing chest discomfort, especially upon taking a deep breath. 3. Increasing shortness of breath, at rest or with exertion. 4. Undue cough / phlegm 5. Difficulty or pain while swallowing. 6. Pain or change in color in the extremities. 7. Fever, chills, rigors. 8. Increasing headache or neurologic symptoms. 9. Dizziness, fainting, palpitations Stop metoprolol No amiodarone above Continue ELIQUIS Continue losartan Discharge Disposition: HOME SELF-CARE
[2022-01-08] MEDS: TAMSULOSIN 0.4 MG CAP.ER.24H PO SCH (08:29)
[2022-01-08] MEDS: APIXABAN 5 MG TAB PO SCH (08:29)
[2022-01-08 08:37] VITALS: BP 107/69; PULSE 66; RESP 17; TEMP 98.3
[2022-01-08] MEDS ORDERED: metFORMIN 500 MG TAB PO SCH (09:00)
== END 2022-01-08 10:16 | disposition home or self-care (01) ==
LOC: CATHEP 13:14 → 6NMEDSUR 17:00 → CATHEP 01-08 10:16
PROVIDERS: ATTEND Internal Medicine Clinical Cardiac Electrophysiology
DX: I48.3 Typical atrial flutter (principal); I49.5 Sick sinus syndrome
CPT/HCPCS: 93623; 93653; C1759; C1894; C1769; C1760; C1766; C1730; C1732; J2250; J0330; J2710; J2001 ×2; J3010; J1644; J0131; J2370; J2704

== ENCOUNTER → 2022-12-26 | Outpatient (CLI) | payer MEDICARE ==
[2022-12-26 21:03] LABS: C Reactive Protein, High Sens 0.365 mg/L (0.000-3.000)
== END | disposition home or self-care (01) ==
LOC: LABWHC1 12:52
PROVIDERS: ATTEND Internal Medicine Clinical Cardiac Electrophysiology
DX: D86.9 Sarcoidosis, unspecified (principal)
CPT/HCPCS: 36415; 82164; 85652; 86141; 86618

== ENCOUNTER → 2023-01-02 | Outpatient (CLI) | payer MEDICARE ==
--- NOTE | 2023-01-02 12:24 | CT ---
EXAMINATION TYPE: CT chest wo con DATE OF EXAM: 01/02/2023 COMPARISON: Radiograph 10/24/2021 HISTORY: 72-year-old male D86.9 SARCOIDOSIS, UNSPECIFIED. TECHNIQUE: Contiguous axial scanning of the chest without contrast. Coronal/sagittal reconstructions performed. CT DLP: 573mGycm. Automatic exposure control utilized for a dose reduction. FINDINGS: The heart is borderline in size without pericardial effusion. Aorta normal caliber with conventional arch vessel branching anatomy. No thoracic lymphadenopathy by CT size criteria. Mild diffuse bronchial wall thickening. Mild biapical pleural-parenchymal scarring. Some minimal stra ndy atelectasis is present in the mid and lower lungs. Tiny 3 mm anterior right middle lobe pulmonary nodule, axial image 18 of series 8. Calcified granuloma anterior right upper lobe, axial image 9 series 8. Punctate calcified granuloma anterior left upper lobe, axial image 8. 3 mm pulmonary nodule left lower lobe, axial image 18 series 8. No perilymphatic nodularity or thickening of the bronchovascular bundles. No consolidation or pleural effusion. Visualized upper abdomen shows mild to moderate stool. Bones: DISH in the lower thoracic spine. IMPRESSION: 1. A few scattered punctate pulmonary nodules, a couple of which represent benign calcified granuloma s. Nodules measuring up to 3 mm on baseline screening. 2. Otherwise, no additional specific findings of pulmonary sarcoidosis at this time. 3. Some minimal scattered strandy scarring or atelectasis. Mild brachial wall thickening could reflec t bronchitis or asthma.
== END | disposition home or self-care (01) ==
LOC: RADCTMAIN 10:13
PROVIDERS: ATTEND Internal Medicine Clinical Cardiac Electrophysiology
DX: D86.0 Sarcoidosis of lung (principal); J98.11 Atelectasis; J98.09 Other diseases of bronchus, not elsewhere classified; R91.8 Other nonspecific abnormal finding of lung field
CPT/HCPCS: 71250

== ENCOUNTER 2023-01-05 18:30 | Inpatient (IN) | payer MEDICARE ==
--- NOTE | 2023-01-05 19:07 | ED ---
General Adult HPI - General Source: patient Mode of arrival: ambulatory <Isidra Jensen - Last Filed: 01/05/23 19:06> <Calli Ackerman - Last Filed: 01/05/23 21:59> - General Stated complaint: Irregular Heart Beat Time Seen by Provider: 01/05/23 19:06 - History of Present Illness Initial comments: 72-year-old male presents to the emergency department chief complaint of slow heart rate. He states that this is been on and off since Thursday. He does admit to a history of this and is scheduled for pacemaker in mid January with Dr. Long. He admits to feeling lightheaded. (Isidra Jensen) Edd is a 72-year-old male presents the ER today for evaluation of lightheadedness and bradycardia. Patient has a history of tachybradycardia syndrome he follows with Dr. Christensen he scheduled to have a speaker placed on February 02 however since Thursday he has been quite symptomatic with episodes of bradycardia and lightheadedness. Patient reports that today he was wearing his heart monitor and was noted that his heart rate dipped to as low as 37 during that time he is feeling quite lightheaded he then got very nervous and started feeling numbness in his hands which prompted him to come to ER for evaluation. (Calli Ackerman) - Related Data Home Medications Medication Instructions Recorded Confirmed Tamsulosin HCl [Flomax] 0.4 mg PO BID 10/01/21 01/05/23 Apixaban [Eliquis] 5 mg PO BID 10/24/21 01/05/23 metFORMIN HCL [Glucophage] 500 mg PO DAILY 10/29/21 01/05/23 Losartan [Cozaar] 25 mg PO DAILY 01/05/23 01/05/23 Pravastatin Sodium [Pravachol] 40 mg PO HS 01/05/23 01/05/23 Allergies Allergy/AdvReac Type Severity Reaction Status Date / Time No Known Allergies Allergy Verified 01/05/23 21:18 Review of Systems ROS Other: All systems not noted in ROS Statement are negative. <Isidra Jensen - Last Filed: 01/05/23 19:06> ROS Other: All systems not noted in ROS Statement are negative. <Calli Ackerman - Last Filed: 01/05/23 21:59> ROS Statement: Those systems with pertinent positive or pertinent negative responses have been documented in the HPI. Past Medical History Past Medical History: Atrial Fibrillation, Cancer, Diabetes Mellitus, Hyperlipidemia, Prostate Disorder, Sleep Apnea/CPAP/BIPAP Additional Past Medical History / Comment(s): prostate cancer 2018, no current CPAP, History of Any Multi-Drug Resistant Organisms: None Reported Past Surgical History: Ablation, Heart Catheterization Additional Past Surgical History / Comment(s): cardioversion 10/30/21, LEG BX ABOUT 40 YEARS AGO, COLONOSCOPY heart cath nov 2021, heart ablation 01/07/2022 Past Anesthesia/Blood Transfusion Reactions: No Reported Reaction Past Psychological History: No Psychological Hx Reported Smoking Status: Never smoker Past Alcohol Use History: None Reported Past Drug Use History: None Reported - Past Family History Brother(s) Family Medical History: Cancer Sister(s) Family Medical History: Cancer Family Family Medical History: No Reported History <Isidra Jensen - Last Filed: 01/05/23 19:06> General Exam <Isidra Jensen - Last Filed: 01/05/23 19:06> <Calli Ackerman - Last Filed: 01/05/23 21:59> - General Exam Comments Initial Comments: Visual Physical Exam Vital signs reviewed General: Well-appearing, nontoxic, no acute distress. Head: Normocephalic, atraumatic Eyes: PERRLA, EOMI ENT: Airway patent Chest: Nonlabored breathing Skin: No visual rash, normal skin tone Neuro: Alert and oriented 3 Musculoskeletal: No gross abnormalities (Isidra Jensen) Physical Exam GENERAL: Patient is well-developed and well-nourished. Patient is nontoxic and well-hydrated and is in no distress. HENT: Normocephalic, Atraumatic. EYES: PERRL, EOMI PULMONARY: Unlabored respirations. No audible rales rhonchi or wheezing was noted. CARDIOVASCULAR: There is a regular rate and rhythm without any murmurs gallops or rubs. ABDOMEN: Soft and nontender with normal bowel sounds. SKIN: Skin is clear with no lesions or rashes and otherwise unremarkable. : Deferred NEUROLOGIC: Patient is alert and oriented x3. Moving all extremities spontaneously MUSCULOSKELETAL: Normal extremities with adequate strength and full range of motion. No lower extremity swelling or edema. No calf tenderness. PSYCHIATRIC: Normal psychiatric evaluation. (Calli Ackerman) Course Vital Signs 01/05/23 01/05/23 19:02 20:54 Temperature 98.4 F 98.7 F Pulse Rate 46 L 54 L Respiratory 18 18 Rate Blood Pressure 161/70 129/78 O2 Sat by Pulse 99 99 Oximetry EKG Findings - EKG Comments: EKG Findings:: EKG interpreted by me, EKG obtained due to bradycardia EKG obtained at 1908, rate is 60 rhythm is sinus with a bifascicular block, no acute ST elevations or depressions no evidence of ischemia or infarction no arrh ythmia noted.. When this EKG is controlled. To EKG from December 2021 there is no significant change in morphology. <Calli Ackerman - Last Filed: 01/05/23 21:59> Medical Decision Making <Isidra Jensen - Last Filed: 01/05/23 19:06> - Lab Data Result diagrams: 01/05/23 19:25 01/05/23 19:25 <Calli Ackerman - Last Filed: 01/05/23 21:59> - Medical Decision Making I preformed the quick note portion of this chart. Electronically signed by Isidra Jensen PA-C (Isidra Jensen) Was pt. sent in by a medical professional or institution ([facility], NIGHT SHIFT MANAGER, urgent care, hospital, or [facility]...) When possible be specific @ -No Did you speak to anyone other than the patient for history (EMS, parent, family, police, friend...)? What history was obtained from this source @ - Did you review nursing and triage notes (agree or disagree)? Why? @ -I reviewed and agree with nursing and triage notes Were old charts reviewed (outside hosp., previous admission, EMS record, old EKG, old radiological studies, urgent care reports/EKG's, [facility] records)? Report findings @ -Reviewed his EKGs were reviewed Differential Diagnosis (chest pain, altered mental status, abdominal pain women, abdominal pain men, vaginal bleeding, weakness, fever, dyspnea, syncope, headache, dizziness, GI bleed, back pain, seizure, CVA, palpatations, mental health, musculoskeletal)? @ -Differential Palpitations Ventricular arrhythmias, atrial arrhythmias, myocardial infarction, anemia, thyrotoxicosis, electrolyte imbalance, hypokalemia, pulmonary embolism, pulmonary disease, drugs, alcohol, anxiety, stress.... This is not meant to be an all-inclusive list. EKG interpreted by me (3pts min.). @ -As above X-rays interpreted by me (1pt min.). @ -None done CT interpreted by me (1pt min.). @ -None done U/S interpreted by me (1pt. min.). @ -None done What testing was considered but not performed or refused? (CT, X-rays, U/S, labs)? Why? @ -None What meds were considered but not given or refused? Why? @ -None Did you discuss the management of the patient with other professionals (professionals i.e. , PA, NIGHT SHIFT MANAGER, lab, RT, psych nurse, social services analyst, coal loader, teacher, president and chief commercial officer, case management manager)? Give summary @ -Dr Long Was smoking cessation discussed for >3mins.? @ -[No Ws critical care preformed (if so, how long)? @ -[No Wre there social determinants of health that impacted care today? How? (Homelessness, low income, unemployed, alcoholism, drug addiction, transportation, low edu. Level, literacy, decrease access to med. care, [facility], rehab)? @ -[No Ws there de-escalation of care discussed even if they declined (Discuss DNR or withdrawal of care, Hospice)? DNR status @ -[No Meagan co-morbidities impacted this encounter? (DM, HTN, Smoking, COPD, CAD, Cancer, CVA, ARF, Chemo, Hep., AIDS, mental health diagnosis, sleep apnea, morbid obesity)? @ -[John] Ws patient admitted / discharged? Hospital course, mention meds given and route, prescriptions, significant lab abnormalities, going to OR and other pertinent info. @ -Admit Patient was seen and evaluated history was obtained from patient and review of medical record. Patient has a known diagnosis of tachybradycardia syndrome he is having symptomatically bradycardia. 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 Patient care was discussed with Dr. Ruiz [facility] who accepts admission. Undiagnosed new problem with uncertain prognosis? @ -[No Dug Therapy requiring intensive monitoring for toxicity (Heparin, Nitro, Insulin, Cardizem)? @ -[No Wre any procedures done? @ -[No Dagnosis/symptom? @ -Tachy-Mitchel Syndrome, Symptomatic Bradycardia Acute, or Chronic, or Acute on Chronic? @ -default Uncomplicated (without systemic symptoms) or Complicated (systemic symptoms)? @ -default Side effects of treatment? @ -No Exacerbation, Progression, or Severe Exacerbation? @ -No Poses a threat to life or bodily function? How? (Chest pain, [place], [place], pneumonia, PE, COPD, DKA, ARF, appy, cholecystitis, CVA, Diverticulitis, Homicidal, Suicidal, threat to staff... and all critical care pts) @ -Yes (Calli Ackerman) - Lab Data Lab Results 01/05/23 01/05/23 01/05/23 Range/Units 19:25 19:25 19:25 WBC 9.7 (3.8-10.6) k/uL RBC 4.75 (4.30-5.90) m/uL Hgb 15.0 (13.0-17.5) gm/dL Hct 45.3 (39.0-53.0) % MCV 95.4 (80.0-100.0) fL MCH 31.5 (25.0-35.0) pg MCHC 33.0 (31.0-37.0) g/dL RDW 12.7 (11.5-15.5) % Plt Count 255 (150-450) k/uL MPV 8.3 Neutrophils % 53 % Lymphocytes % 39 % Monocytes % 5 % Eosinophils % 1 % Basophils % 0 % Neutrophils # 5.2 (1.3-7.7) k/uL Lymphocytes # 3.8 (1.0-4.8) k/uL Monocytes # 0.5 (0-1.0) k/uL Eosinophils # 0.1 (0-0.7) k/uL Basophils # 0.0 (0-0.2) k/uL PT 10.9 (10.0-12.5) sec INR 1.0 (<1.2) APTT 27.7 (22.0-30.0) sec Sodium 138 (137-145) mmol/L Potassium 4.6 (3.5-5.1) mmol/L Chloride 104 (98-107) mmol/L Carbon Dioxide 22 (22-30) mmol/L Anion Gap 12 mmol/L BUN 11 (9-20) mg/dL Creatinine 0.67 (0.66-1.25) mg/dL Est GFR (CKD-EPI)AfAm >90 (>60 ml/min/1.73 sqM) Est GFR (CKD-EPI)NonAf >90 (>60 ml/min/1.73 sqM) Glucose 79 (74-99) mg/dL Calcium 9.6 (8.4-10.2) mg/dL Magnesium 2.1 (1.6-2.3) mg/dL Total Bilirubin 0.5 (0.2-1.3) mg/dL AST 30 (17-59) U/L ALT 22 (4-49) U/L Alkaline Phosphatase 48 (38-126) U/L Troponin I (0.000-0.034) ng/mL Total Protein 7.7 (6.3-8.2) g/dL Albumin 4.8 (3.5-5.0) g/dL 01/05/23 Range/Units 19:25 WBC (3.8-10.6) k/uL RBC (4.30-5.90) m/uL Hgb (13.0-17.5) gm/dL Hct (39.0-53.0) % MCV (80.0-100.0) fL MCH (25.0-35.0) pg MCHC (31.0-37.0) g/dL RDW (11.5-15.5) % Plt Count (150-450) k/uL MPV Neutrophils % % Lymphocytes % % Monocytes % % Eosinophils % % Basophils % % Neutrophils # (1.3-7.7) k/uL Lymphocytes # (1.0-4.8) k/uL Monocytes # (0-1.0) k/uL Eosinophils # (0-0.7) k/uL Basophils # (0-0.2) k/uL PT (10.0-12.5) sec INR (<1.2) APTT (22.0-30.0) sec Sodium (137-145) mmol/L Potassium (3.5-5.1) mmol/L Chloride (98-107) mmol/L Carbon Dioxide (22-30) mmol/L Anion Gap mmol/L BUN (9-20) mg/dL Creatinine (0.66-1.25) mg/dL Est GFR (CKD-EPI)AfAm (>60 ml/min/1.73 sqM) Est GFR (CKD-EPI)NonAf (>60 ml/min/1.73 sqM) Glucose (74-99) mg/dL Calcium (8.4-10.2) mg/dL Magnesium (1.6-2.3) mg/dL Total Bilirubin (0.2-1.3) mg/dL AST (17-59) U/L ALT (4-49) U/L Alkaline Phosphatase (38-126) U/L Troponin I <0.012 (0.000-0.034) ng/mL Total Protein (6.3-8.2) g/dL Albumin (3.5-5.0) g/dL Disposition <Isidra Jensen - Last Filed: 01/05/23 19:06> Is patient prescribed a controlled substance at d/c from ED?: No <Calli Ackerman - Last Filed: 01/05/23 21:59> Clinical Impression: Tachy-mitchel syndrome, Symptomatic bradycardia Disposition: ADMITTED IP TO THIS HOSP Condition: Serious Referrals: Hal Gutiérrez MD [Primary Care Provider] - 1-2 days
[2023-01-05 19:55] LABS: Basophils % (A) 0 %; Eosinophils # (A) 0.1 k/uL (0-0.7); Eosinophils % (A) 1 %; HCT 45.3 % (39.0-53.0); Lymphocytes # (A) 3.8 k/uL (1.0-4.8); Lymphocytes % (A) 39 %; MCH 31.5 pg (25.0-35.0); MCV 95.4 fL (80.0-100.0); Mean Platelet Volume 8.3; Monocytes # (A) 0.5 k/uL (0-1.0); Monocytes % (A) 5 %; Neutrophils # (A) 5.2 k/uL (1.3-7.7); Neutrophils % (A) 53 %; Platelet Count 255 k/uL (150-450); RBC 4.75 m/uL (4.30-5.90); RDW 12.7 % (11.5-15.5); WBC 9.7 k/uL (3.8-10.6)
[2023-01-05 20:03] LABS: Partial Thromboplastin Time 27.7 sec (22.0-30.0); Prothrombin Time 10.9 sec (10.0-12.5)
[2023-01-05 21:22] LABS: ALT 22 U/L (4-49); AST 30 U/L (17-59); African American GFR (CKD) >90 (>60 ml/min/1.73 sqM); Albumin 4.8 g/dL (3.5-5.0); Alkaline Phosphatase 48 U/L (38-126); Anion Gap 12 mmol/L; Blood Urea Nitrogen 11 mg/dL (9-20); Calcium 9.6 mg/dL (8.4-10.2); Carbon Dioxide 22 mmol/L (22-30); Chloride 104 mmol/L (98-107); Glucose 79 mg/dL (74-99); Magnesium 2.1 mg/dL (1.6-2.3); Non-African American GFR(CKD) >90 (>60 ml/min/1.73 sqM); Potassium 4.6 mmol/L (3.5-5.1); Sodium 138 mmol/L (137-145); Total Bilirubin 0.5 mg/dL (0.2-1.3); Total Protein 7.7 g/dL (6.3-8.2)
[2023-01-05] MEDS ORDERED: NALOXONE 0.4 MG/ML 1 ML VIAL IV PRN (21:50)
[2023-01-05] MEDS: SODIUM CHLORIDE 0.9% 1,000 ML IV SCH (22:04)
[2023-01-06] MEDS ORDERED: MELATONIN 5 MG TABLET PO PRN (01:14)
[2023-01-06] MEDS ORDERED: DEXTROSE 50% SYRINGE 50 ML IVP PRN ×2 (01:15)
[2023-01-06] MEDS: APIXABAN 5 MG TAB PO SCH ×2 (01:43→08:36)
--- NOTE | 2023-01-06 01:48 | P.HPIM ---
History of Present Illness H&P Date: 01/05/23 Chief Complaint: dizziness, slow heart rate 72 year old male with afib on eliquis , history of tachyarrhythmia s/p ablation patient reports having episodes of bradycardia for the past 2 years, and has been following up with cardiology running different tests , and tried different treatments . he was scheduled for a pacemaker on Feb 02. over past couple days , he was getting repeated episodes of prolonged symptomatic bradycardia , reporting lightheadedness, dizziness, the day before lasted for 12 hours and todays episode lasted 6 hours where his heart rate was in the 30s for which he decided to come in for evaluation . he denies any vomiting, denies any chest pain , denies any recent URI symptoms . patient is not on a beta nava or calcium channel nava. he is on blood thinners for afib and ACEi he feels better now , and back to normal , denies any fever, chills, chest pain , or SOB. he denies any falls or syncope. review of systems Pertinent positives as noted in HPI. All other systems were reviewed and are negative on exam Constitutional: No acute distress, conversant, pleasant Eyes: Anicteric sclerae, moist conjunctiva, Pupils equal round reactive to light ENMT: NC/AT Oropharynx clear, no erythema, or exudates Neck: Supple, no masses, or JVD No carotid bruits No thyromegaly Lungs: Clear to auscultation Clear to percussion Normal respiratory effort, no accessory muscle use Cardiovascular: Heart regular in rate and rhythm, No murmurs, gallops, or rubs No peripheral edema Abdominal: Soft Nontender, no guarding, rebound or rigidity Abdomen moving with respiration Normoactive bowel sounds No hepatomegaly, No splenomegaly No palpable mass No abdominal wall hernia noted Skin: Normal temperature, tone, texture, turgor No induration No subcutaneous nodules No rash, lesions No ulcers Extremities: No digital cyanosis No clubbing Pedal pulses intact and symmetrical Radial pulses intact and symmetrical No calf tenderness Psychiatric: Alert and oriented to person, place and time Appropriate affect fair judgement Neuro Muscles Strength 5/5 in all 4 extremities Sensation to light touch grossly present throughout Cranial nerves II-XII grossly intact Lymphatics: no palpable cervical or supraclavicular lymph nodes Past Medical History Past Medical History: Atrial Fibrillation, Cancer, Diabetes Mellitus, Hyperlipidemia, Prostate Disorder, Sleep Apnea/CPAP/BIPAP Additional Past Medical History / Comment(s): prostate cancer 2017, no current CPAP, History of Any Multi-Drug Resistant Organisms: None Reported Past Surgical History: Ablation, Heart Catheterization Additional Past Surgical History / Comment(s): cardioversion 10/30/21, LEG BX ABOUT 40 YEARS AGO, COLONOSCOPY heart cath nov 2021, heart ablation 01/07/2022 Past Anesthesia/Blood Transfusion Reactions: No Reported Reaction Past Psychological History: No Psychological Hx Reported Smoking Status: Never smoker Past Alcohol Use History: None Reported Past Drug Use History: None Reported - Past Family History Brother(s) Family Medical History: Cancer Sister(s) Family Medical History: Cancer Family Family Medical History: No Reported History Medications and Allergies Home Medications Medication Instructions Recorded Confirmed Type Tamsulosin HCl [Flomax] 0.4 mg PO BID 10/01/21 01/05/23 History Apixaban [Eliquis] 5 mg PO BID 10/24/21 01/05/23 History metFORMIN HCL [Glucophage] 500 mg PO DAILY 10/29/21 01/05/23 History Losartan [Cozaar] 25 mg PO DAILY 01/05/23 01/05/23 History Pravastatin Sodium [Pravachol] 40 mg PO HS 01/05/23 01/05/23 History Allergies Allergy/AdvReac Type Severity Reaction Status Date / Time No Known Allergies Allergy Verified 01/05/23 21:18 Physical Exam Vitals: Vital Signs Temp Pulse Resp BP Pulse Ox 01/05/23 22:00 51 L 18 119/78 99 01/05/23 20:54 98.7 F 54 L 18 129/78 99 01/05/23 19:02 98.4 F 46 L 18 161/70 99 Intake and Output 01/05/23 01/05/23 01/06/23 14:59 22:59 06:59 Other: Weight 83.461 kg Results CBC & Chem 7: 01/05/23 19:25 01/05/23 19:25 Assessment and Plan Assessment: 72 year old male with DM afib on eliquis , presented with symptomatic chon cardia , I discussed the case with ED doc and I accepted the admission for symptomatic bradycardia with anticipated length of stay > 2 midnights symptomatic bradycardia cardiology consult EKG sinus rhythm , no acute ST changes trops neg <0.012 denies any chest pain rn cardiac monitor vital signs chronic conditions p.afib on eliquis resume eliquis DM , insulin sliding scale hypertension , controlled , resume lisinopril blood work unremarkable wbc 9.7, Hgb 15 Na 138, K 4.6, Bun 11, Cr 0.67 full code DVT PPX on eliquis for afib
[2023-01-06 07:53] LABS: Glucose,Whole Blood 87 mg/dL (70-110)
[2023-01-06] MEDS: INSULIN ASPART (NovoLOG) 100 UNIT/ML VIAL SQ SCH ×4 (07:55→21:02)
[2023-01-06] MEDS: TAMSULOSIN 0.4 MG CAP.ER.24H PO SCH ×2 (08:56→20:37)
[2023-01-06] MEDS: LOSARTAN 25 MG TAB PO SCH (08:56)
[2023-01-06] MEDS: SODIUM CHLORIDE 0.9% 1,000 ML IV SCH ×3 (08:58→11:27)
[2023-01-06 11:23] LABS: Glucose,Whole Blood 90 mg/dL (70-110)
--- NOTE | 2023-01-06 13:00 | P.PN ---
Subjective Progress Note Date: 01/06/23 No new complaints today. HRs better controlled. Discussed with Cardiology, plan for PPM placement today. Gen: awake, alert HEENT: normocephalic, atraumatic, good hearing acuity, moist mucous membranes Resp: good air exchange, breathing comfortably with no accessory muscle use CVS: good distal perfusion x 4, GI: soft, NTTP, ND : no SPT, no CVAT, dove catheter not present MSK: no pitting edema, no clubbing Neuro: non-focal, moving all extremities Psych: cooperative, euthymic mood Hospital Course: 72-year-old man with a medical history of persistent atrial fibrillation on Apixiban status post previous ablation, diabetes, hyperlipidemia, obstructive sleep apnea, hypertension presented for evaluation of bradycardia. In the emergency room, patient was afebrile, 161/70, heart rate 46, 99% on room air. CBC, basic metabolic panel, liver function tests, troponin, coags were all unremarkable. EKG showed sinus rhythm with right bundle-branch block, left anterior fascicular block. Assessment/plan: Symptomatic bradycardia Persistent atrial fibrillation on Apixiban -Cardiology consulted -Monitor patient on telemetry -Holding Apixiban in anticipation of permanent pacemaker placement -Discussed with cardiology regarding placement today Hypertension Hyperlipidemia Diabetes type 2 Obstructive sleep apnea BPH -Home medications reviewed and reconciled Patient is full code Objective - Vital Signs Vital signs: Vital Signs Temp 98.1 F 01/06/23 07:00 Pulse 50 L 01/06/23 09:00 Resp 17 01/06/23 09:00 BP 107/63 01/06/23 09:00 Pulse Ox 100 01/06/23 05:00 FiO2 Intake & Output 01/05/23 01/06/23 01/06/23 18:59 06:59 18:59 Weight 83.461 kg - Labs CBC & Chem 7: 01/05/23 19:25 01/05/23 19:25
--- NOTE | 2023-01-06 13:08 | P.CRDCN ---
History of Present Illness History of present illness: HISTORY OF PRESENT ILLNESS: This is a 72-year-old male with a past medical history significant for atrial flutter with previous cardioversion and ablation, symptomatic paroxysmal AV block, presyncope, and hyperlipidemia with previous statin intolerance. Patient follows in the office with Dr. Long. We have been asked to see the patient in consultation for bradycardia. Patient examined at the bedside in the emergency room. Patient presented to the hospital for chief complaint of dizziness. Patient states his heart rate at home was dropping into the 30s. He reports having some shortness of breath as well. The patient was scheduled for permanent pacemaker implantation in January. Bedside telemetry reveals sinus bradycardia with a heart rate in the 50s. * EKG reveals sinus mechanism with right bundle branch block. Heart rate 60. * Current home cardiac medications include pravastatin 40 mg at night, losartan 25 mg daily, and Eliquis 5mg BID * Most recent echocardiogram obtained in September 2021 revealing ejection fraction 40-45%, moderate global hypokinesis, trace tricuspid regurgitation, and mild mitral regurgitation * Repeat echocardiogram performed in March 2022 revealed ejection fraction 50- 55% with mild LVH * Cardiac catheterization history: November 2021 revealing left dominant system. Normal filling pressures. No significant obstructive coronary artery disease. REVIEW OF SYSTEMS: At the time of my exam: CONSTITUTIONAL: Denies fever or chills. HEENT: Denies blurred vision, vision changes, or eye pain. Denies hemoptysis CARDIOVASCULAR: Denies chest pain. Denies orthopnea. Denies PND. Denies palpita tions RESPIRATORY: Denies shortness of breath. GASTROINTESTINAL: Denies abdominal pain. Denies nausea or vomiting. HEMATOLOGIC: Denies bleeding disorders. GENITOURINARY: Denies any blood in urine. SKIN: Denies pruitis. Denies rash. PHYSICAL EXAM: VITAL SIGNS: Reviewed. GENERAL: Well-developed in no acute distress. HEENT: Head is normocephalic. Pupils are equal, round. Sclerae anicteric. Mucous membranes of the mouth are moist. Neck supple. No JVD or thyromegaly LUNGS: Respirations even and unlabored. Lungs essentially clear to auscultation bilaterally. HEART: Bradycardic. Regular rate and rhythm. S1 and S2 heard. ABDOMEN: Soft. Nondistended. Nontender. EXTREMITIES: Normal range of motion. No clubbing or cyanosis. Peripheral pulses intact. No lower extremity edema NEUROLOGIC: Awake and alert. Oriented x 3. ASSESSMENT: Symptomatic bradycardia Symptomatic paroxysmal AV block with presyncope History of symptomatic typical atrial flutter with previous cardioversion and ablation Hyperlipidemia with previous statin intolerance History of cardiomyopathy, nonischemic, ejection fraction 40-45%, with recovered EF now 50-55% No obstructive coronary artery disease, per cardiac catheterization November 2021 PLAN: Continue current cardiac medications Hold anticoagulation Patient tentatively scheduled for pacemaker implantation with Dr. Long on Continue telemetry monitoring Further recommendations pending patient's course Nurse practitioner note has been reviewed by physician. Signing provider agrees with the documented findings, assessment, and plan of care. Past Medical History Past Medical History: Atrial Fibrillation, Cancer, Diabetes Mellitus, Hyperlipidemia, Prostate Disorder, Sleep Apnea/CPAP/BIPAP Additional Past Medical History / Comment(s): prostate cancer 2017, no current CPAP, History of Any Multi-Drug Resistant Organisms: None Reported Past Surgical History: Ablation, Heart Catheterization Additional Past Surgical History / Comment(s): cardioversion 10/30/21, LEG BX ABOUT 40 YEARS AGO, COLONOSCOPY heart cath nov 2021, heart ablation 01/07/2022 Past Anesthesia/Blood Transfusion Reactions: No Reported Reaction Past Psychological History: No Psychological Hx Reported Smoking Status: Never smoker Past Alcohol Use History: None Reported Past Drug Use History: None Reported - Past Family History Brother(s) Family Medical History: Cancer Sister(s) Family Medical History: Cancer Family Family Medical History: No Reported History Medications and Allergies Home Medications Medication Instructions Recorded Confirmed Type Tamsulosin HCl [Flomax] 0.4 mg PO BID 10/01/21 01/05/23 History Apixaban [Eliquis] 5 mg PO BID 10/24/21 01/05/23 History metFORMIN HCL [Glucophage] 500 mg PO DAILY 10/29/21 01/05/23 History Losartan [Cozaar] 25 mg PO DAILY 01/05/23 01/05/23 History Pravastatin Sodium [Pravachol] 40 mg PO HS 01/05/23 01/05/23 History Allergies Allergy/AdvReac Type Severity Reaction Status Date / Time No Known Allergies Allergy Verified 01/05/23 21:18 Physical Exam Vitals: Vital Signs Temp Pulse Resp BP Pulse Ox 01/06/23 09:00 50 L 17 107/63 01/06/23 08:00 52 L 16 107/63 01/06/23 07:00 98.1 F 52 L 17 107/63 01/06/23 05:00 98 F 67 16 107/63 100 01/06/23 01:00 50 L 16 117/66 97 01/05/23 22:00 51 L 18 119/78 99 01/05/23 20:54 98.7 F 54 L 18 129/78 99 01/05/23 19:02 98.4 F 46 L 18 161/70 99 Intake and Output 01/05/23 01/06/23 01/06/23 22:59 06:59 14:59 Other: Weight 83.461 kg Results 01/05/23 19:25 01/05/23 19:25 Cardiac Enzymes 01/05/23 01/05/23 Range/Units 19:25 19:25 AST 30 (17-59) U/L Troponin I <0.012 (0.000-0.034) ng/mL Coagulation 01/05/23 Range/Units 19:25 PT 10.9 (10.0-12.5) sec APTT 27.7 (22.0-30.0) sec CBC 01/05/23 Range/Units 19:25 WBC 9.7 (3.8-10.6) k/uL RBC 4.75 (4.30-5.90) m/uL Hgb 15.0 (13.0-17.5) gm/dL Hct 45.3 (39.0-53.0) % Plt Count 255 (150-450) k/uL Comprehensive Metabolic Panel 01/05/23 Range/Units 19:25 Sodium 138 (137-145) mmol/L Potassium 4.6 (3.5-5.1) mmol/L Chloride 104 (98-107) mmol/L Carbon Dioxide 22 (22-30) mmol/L BUN 11 (9-20) mg/dL Creatinine 0.67 (0.66-1.25) mg/dL Glucose 79 (74-99) mg/dL Calcium 9.6 (8.4-10.2) mg/dL AST 30 (17-59) U/L ALT 22 (4-49) U/L Alkaline Phosphatase 48 (38-126) U/L Total Protein 7.7 (6.3-8.2) g/dL Albumin 4.8 (3.5-5.0) g/dL Current Medications Generic Name Dose Route Start Last Admin Trade Name Tram PRN Reason Stop Dose Admin Apixaban 5 mg 01/06/23 01:15 01/06/23 08:36 Apixaban 5 Mg Tab PO Not Given BID KRISSY Protocol Dextrose/Water 25 ml 01/06/23 01:15 Dextrose 50% Syringe 50 Ml IVP PER PROTOCOL PRN Hypoglycemia Protocol Dextrose/Water 50 ml 01/06/23 01:15 Dextrose 50% Syringe 50 Ml IVP PER PROTOCOL PRN Hypoglycemia Protocol Sodium Chloride 1,000 mls @ 75 mls/hr 01/05/23 22:00 01/06/23 11:27 Saline 0.9% IV 75 mls/hr .[id number] KRISSY Administration Sodium Chloride 1,000 mls @ 50 mls/hr 01/06/23 08:00 01/06/23 08:58 Saline 0.9% IV 50 mls/hr .Q20H KRISSY Administration Sodium Chloride 1,000 mls @ 50 mls/hr 01/06/23 08:00 01/06/23 08:59 Saline 0.9% IV Not Given .Q20H KRISSY Cefazolin Sodium 2 gm/ Sodium 50 mls @ 100 mls/hr 01/08/23 07:00 Chloride IVPB 01/08/23 23:00 ONCE PRN Pre-Op Cefazolin Sodium 1 gm/ Sodium 250 mls @ 250 mls/hr 01/08/23 07:00 Chloride IRRIGATION 01/08/23 23:00 ONCE PRN PRE-OP Insulin Aspart 0 unit 01/06/23 07:30 01/06/23 11:50 Insulin Aspart (Novolog) 100 Unit/Ml Vial SQ Not Given ACHS KRISSY Protocol Losartan Potassium 25 mg 01/06/23 09:00 01/06/23 08:56 Losartan 25 Mg Tab PO Not Given DAILY KRISSY Melatonin 5 mg 01/06/23 01:14 Melatonin 5 Mg Tablet PO HS PRN Insomnia Naloxone HCl 0.2 mg 01/05/23 21:50 Naloxone 0.4 Mg/Ml 1 Ml Vial IV Q2M PRN Opioid Reversal Pravastatin Sodium 40 mg 01/06/23 21:00 Pravastatin Sodium 40 Mg Tab PO HS KRISSY Tamsulosin HCl 0.4 mg 01/06/23 09:00 01/06/23 08:56 Tamsulosin 0.4 Mg Cap.Er.24h PO 0.4 mg BID KRISSY Administration Intake and Output 01/05/23 01/06/23 01/06/23 22:59 06:59 14:59 Other: Weight 83.461 kg 01/05/23 19:25 01/05/23 19:25
[2023-01-06 15:49] LABS: Glucose,Whole Blood 76 mg/dL (70-110)
[2023-01-06] MEDS: PRAVASTATIN SODIUM 40 MG TAB PO SCH (20:37)
[2023-01-06 20:47] LABS: Glucose,Whole Blood 116 mg/dL (70-110)
[2023-01-07] MEDS: SODIUM CHLORIDE 0.9% 1,000 ML IV SCH ×4 (01:38→17:55)
[2023-01-07 05:52] LABS: Glucose,Whole Blood 93 mg/dL (70-110)
[2023-01-07] MEDS: INSULIN ASPART (NovoLOG) 100 UNIT/ML VIAL SQ SCH ×4 (06:07→20:02)
[2023-01-07] MEDS ORDERED: ceFAZolin 1 GM in SODIUM CHLORIDE 0.9% IRRIG BTL 250 ML IRRIGATION PRN (07:00)
[2023-01-07] MEDS: LOSARTAN 25 MG TAB PO SCH (08:08)
[2023-01-07] MEDS: TAMSULOSIN 0.4 MG CAP.ER.24H PO SCH ×2 (08:08→20:01)
[2023-01-07 11:25] LABS: Glucose,Whole Blood 95 mg/dL (70-110)
--- NOTE | 2023-01-07 13:36 | P.PN ---
Subjective HISTORY OF PRESENT ILLNESS: This is a 72-year-old male with a past medical history significant for atrial flutter with previous cardioversion and ablation, symptomatic paroxysmal AV block, presyncope, and hyperlipidemia with previous statin intolerance. Patient follows in the office with Dr. Long. We have been asked to see the patient in consultation for bradycardia. Patient examined at the bedside in the emergency room. Patient presented to the hospital for chief complaint of dizziness. Patient states his heart rate at home was dropping into the 30s. He reports having some shortness of breath as well. The patient was scheduled for permanent pacemaker implantation in January. Bedside telemetry reveals sinus bradycardia with a heart rate in the 50s. * EKG reveals sinus mechanism with right bundle branch block. Heart rate 60. * Current home cardiac medications include pravastatin 40 mg at night, losartan 25 mg daily, and Eliquis 5mg BID * Most recent echocardiogram obtained in September 2021 revealing ejection fraction 40-45%, moderate global hypokinesis, trace tricuspid regurgitation, and mild mitral regurgitation * Repeat echocardiogram performed in March 2022 revealed ejection fraction 50- 55% with mild LVH * Cardiac catheterization history: November 2021 revealing left dominant system. Normal filling pressures. No significant obstructive coronary artery disease. 01/07/2023 Patient examined this morning at the bedside. Patient denies chest pain or pressure. He denies shortness of breath. Telemetry reveals sinus mechanism with occasional bradycardia dipping into the 30s to 40s. He currently denies any dizziness or lightheadedness. PHYSICAL EXAM: VITAL SIGNS: Reviewed. GENERAL: Well-developed in no acute distress. HEENT: Head is normocephalic. Pupils are equal, round. Sclerae anicteric. Mucous membranes of the mouth are moist. Neck supple. No JVD or thyromegaly LUNGS: Respirations even and unlabored. Lungs essentially clear to auscultation bilaterally. HEART: Bradycardic. Regular rate and rhythm. S1 and S2 heard. ABDOMEN: Soft. Nondistended. Nontender. EXTREMITIES: Normal range of motion. No clubbing or cyanosis. Peripheral puls es intact. No lower extremity edema NEUROLOGIC: Awake and alert. Oriented x 3. ASSESSMENT: Symptomatic bradycardia Symptomatic paroxysmal AV block with presyncope History of symptomatic typical atrial flutter with previous cardioversion and ablation Hyperlipidemia with previous statin intolerance History of cardiomyopathy, nonischemic, ejection fraction 40-45%, with recovered EF now 50-55% No obstructive coronary artery disease, per cardiac catheterization November 2021 PLAN: Continue current cardiac medications Hold anticoagulation Patient scheduled for pacemaker implantation with Dr. Long on Continue telemetry monitoring Further recommendations pending patient's course Nurse practitioner note has been reviewed by physician. Signing provider agrees with the documented findings, assessment, and plan of care. Objective - Vital Signs Vital signs: Vital Signs Temp 97.6 F 01/07/23 12:00 Pulse 60 01/07/23 12:00 Resp 16 01/07/23 12:00 BP 118/62 01/07/23 12:00 Pulse Ox 100 01/07/23 12:00 FiO2 Intake & Output 01/06/23 01/07/23 01/07/23 18:59 06:59 18:59 Intake Total 240 Balance 240 Weight 83.461 kg Intake: Oral 240 Other: Voiding Method Toilet Toilet # Voids 1 - Labs CBC & Chem 7: 01/05/23 19:25 01/05/23 19:25 Labs: Abnormal Lab Results - Last 24 Hours (Table) 01/06/23 Range/Units 20:46 POC Glucose (mg/dL) 116 H (70-110) mg/dL
--- NOTE | 2023-01-07 14:30 | P.PN ---
Subjective Progress Note Date: 01/07/23 No new complaints today. HRs better controlled. Discussed with Cardiology, plan for PPM placement , yesterday was delayed due to scheduling in EP lab. Gen: awake, alert HEENT: normocephalic, atraumatic, good hearing acuity, moist mucous membranes Resp: good air exchange, breathing comfortably with no accessory muscle use CVS: good distal perfusion x 4, GI: soft, NTTP, ND : no SPT, no CVAT, dove catheter not present MSK: no pitting edema, no clubbing Neuro: non-focal, moving all extremities Psych: cooperative, euthymic mood Hospital Course: 72-year-old man with a medical history of persistent atrial fibrillation on Apixiban status post previous ablation, diabetes, hyperlipidemia, obstructive sleep apnea, hypertension presented for evaluation of bradycardia. In the emergency room, patient was afebrile, 161/70, heart rate 46, 99% on room air. CBC, basic metabolic panel, liver function tests, troponin, coags were all unremarkable. EKG showed sinus rhythm with right bundle-branch block, left anterior fascicular block. Assessment/plan: Symptomatic bradycardia Persistent atrial fibrillation on Apixiban -Cardiology consulted -Monitor patient on telemetry -Holding Apixiban in anticipation of permanent pacemaker placement -Discussed with cardiology regarding placement on Hypertension Hyperlipidemia Diabetes type 2 Obstructive sleep apnea BPH -Home medications reviewed and reconciled Patient is full code Objective - Vital Signs Vital signs: Vital Signs Temp 97.6 F 01/07/23 12:00 Pulse 60 01/07/23 12:00 Resp 16 01/07/23 12:00 BP 118/62 01/07/23 12:00 Pulse Ox 100 01/07/23 12:00 FiO2 Intake & Output 01/06/23 01/07/23 01/07/23 18:59 06:59 18:59 Intake Total 240 Balance 240 Weight 83.461 kg Intake: Oral 240 Other: Voiding Method Toilet Toilet # Voids 1 - Labs CBC & Chem 7: 01/05/23 19:25 01/05/23 19:25 Labs: Abnormal Lab Results - Last 24 Hours (Table) 01/06/23 Range/Units 20:46 POC Glucose (mg/dL) 116 H (70-110) mg/dL
[2023-01-07 16:26] LABS: Glucose,Whole Blood 88 mg/dL (70-110)
[2023-01-07] MEDS: LACTATED RINGERS 1,000 ML IV SCH (17:55)
[2023-01-07 19:49] LABS: Glucose,Whole Blood 163 mg/dL (70-110)
[2023-01-07] MEDS: PRAVASTATIN SODIUM 40 MG TAB PO SCH (20:01)
[2023-01-08] MEDS: SODIUM CHLORIDE 0.9% 1,000 ML IV SCH ×3 (05:59)
[2023-01-08 06:07] LABS: Glucose,Whole Blood 102 mg/dL (70-110)
[2023-01-08] MEDS: INSULIN ASPART (NovoLOG) 100 UNIT/ML VIAL SQ SCH ×4 (06:39→20:51)
[2023-01-08] MEDS ORDERED: ceFAZolin 1 GM in SODIUM CHLORIDE 0.9% IRRIG BTL 250 ML IRRIGATION PRN (07:00)
[2023-01-08] MEDS: LOSARTAN 25 MG TAB PO SCH (08:04)
[2023-01-08] MEDS: TAMSULOSIN 0.4 MG CAP.ER.24H PO SCH ×2 (08:04→20:51)
--- NOTE | 2023-01-08 10:39 | P.PN ---
Subjective Progress Note Date: 01/08/23 No new complaints today. HRs better controlled. Plan for PPM placement today Gen: awake, alert HEENT: normocephalic, atraumatic, good hearing acuity, moist mucous membranes Resp: good air exchange, breathing comfortably with no accessory muscle use CVS: good distal perfusion x 4, GI: soft, NTTP, ND : no SPT, no CVAT, dove catheter not present MSK: no pitting edema, no clubbing Neuro: non-focal, moving all extremities Psych: cooperative, euthymic mood Hospital Course: 72-year-old man with a medical history of persistent atrial fibrillation on Apixiban status post previous ablation, diabetes, hyperlipidemia, obstructive sleep apnea, hypertension presented for evaluation of bradycardia. In the emergency room, patient was afebrile, 161/70, heart rate 46, 99% on room air. CBC, basic metabolic panel, liver function tests, troponin, coags were all unremarkable. EKG showed sinus rhythm with right bundle-branch block, left anterior fascicular block. Assessment/plan: Symptomatic bradycardia Persistent atrial fibrillation on Apixiban -Cardiology consulted -Monitor patient on telemetry -Holding Apixiban in anticipation of permanent pacemaker placement -Discussed with cardiology regarding pacemaker placement today Hypertension Hyperlipidemia Diabetes type 2 Obstructive sleep apnea BPH -Home medications reviewed and reconciled Patient is full code Objective - Vital Signs Vital signs: Vital Signs Temp 97.7 F 01/08/23 08:00 Pulse 80 01/08/23 08:00 Resp 20 01/08/23 08:00 BP 101/73 01/08/23 08:00 Pulse Ox 99 01/08/23 08:00 FiO2 Intake & Output 01/07/23 01/08/23 01/08/23 18:59 06:59 18:59 Weight 84.5 kg Other: Voiding Method Toilet Toilet # Voids 3 2 - Labs CBC & Chem 7: 01/05/23 19:25 01/05/23 19:25 Labs: Abnormal Lab Results - Last 24 Hours (Table) 01/07/23 Range/Units 19:47 POC Glucose (mg/dL) 163 H (70-110) mg/dL
[2023-01-08 11:42] LABS: Glucose,Whole Blood 102 mg/dL (70-110)
[2023-01-08] MEDS ORDERED: fentaNYL (PF) 50 MCG/ML 2 ML AMP ONE (13:35)
[2023-01-08] MEDS ORDERED: diphenhydrAMINE 50 MG/ML 1 ML VIAL ONE (13:35)
[2023-01-08] MEDS ORDERED: LACTATED RINGERS 1,000 ML IV ONE (13:35)
[2023-01-08] MEDS ORDERED: MIDAZOLAM 2 MG/2 ML VIAL ONE (13:35)
[2023-01-08] MEDS ORDERED: LIDOCAINE 1% INJ 10MG/ML (20 ML MDV) ONE (14:09)
[2023-01-08] MEDS ORDERED: LIDOCAINE 1% INJ 10MG/ML (20 ML MDV) SQ ONE (14:30)
[2023-01-08] MEDS: LACTATED RINGERS 1,000 ML IV SCH (14:48)
[2023-01-08] MEDS ORDERED: ACETAMINOPHEN IV (For NPO) 1,000 MG in EMPTY BAG 1 BAG IVPB ONE (15:46)
--- NOTE | 2023-01-08 15:50 | P.EPPROC ---
- EP Procedure Note Electrophysiology Procedure Note: Diagnosis Symptomatic bradycardia, unprovoked, no triggering factors Sick sinus syndrome with paroxysmal AV block, not on any AV node blocking drugs Procedure Dual-chamber pacemaker implantation with conduction system pacing (left bundle pacing) Left upper extremity venogram Details Patient was brought to the EP lab in a fasting state. Written informed consent was obtained prior to the procedure. Conscious sedation provided by PROJECTOR BOOTH OPERATOR. IV antibiotics administered. Local anesthesia administered. A 4 cm incision made in the pectoral area. Subfascial pocket made. Venous accesses obtained Venous sheaths placed. Leads placed in the right heart. 2 sets of pacing cables were used; one for backup temporary pacing and the other for assessment of current of injury and signal analysis. A 52 cm atrial pacing lead was first positioned in the RV apex for temporary pacing during mapping and conduction system pacing Thresholds were interrogated and backup high output pacing was provided This atrial lead was then removed from the right ventricle and later positioned in the right atrial appendage and the permanent lead A deflected sheath was prepped. A coronary sinus decapolar catheter was placed within this sheath. The catheter along with the sheath was then passed into the right heart, the catheter was prolapsed across the tricuspid valve, into the right ventricle and then further into the right ventricular outflow tract across the pulmonic valve into the pulmonary artery. This sheath was slid over this decapolar catheter into the RVOT. Thereafter the catheter last sheath assembly was withdrawn from the RVOT along the septum to the mid septal area. The sheath was appropriately to to map the right ventricular aspect of the septum. The decapolar catheter was withdrawn, the sheath flushed again and the screw-in pacing lead placed within the sheath. Further detailed unipolar pace-mapping of the septum was performed and once the appropriate based morphology was obtained on lead V1, the lead was screwed into the septum. The lead was screwed in 4-5 returns at a time while monitoring the current of injury, the pacing impedance changes and the paced QRS morphology. The stimulus to peak of V6 QRS was measured at each step. Once a QR or rSR pattern of paced QRS in lead V1 was obtained, a left bundle signal was sought. Impedance was measured and thresholds were measured. An impedance drop of 100-200 ohms but above 550 ohms was targeted along with an unchanged vector of the current of injury signal. The final positioning was based on the QRS morphology in lead V1 and a short stimulus to peak of the V6 QRS of less than 90 ms. The sheath was withdrawn, stability of the pacing lead deep in the septum was confirmed on TINAJERO and GERMAN views and the sheath was slipped and an adequate heel was provided for the lead. Unipolar and bipolar electrogram morphology obtained Atrial lead positioned in the right atrial appendage. Sensing, thresholds and impedances measured following positioning and securing the lead in the right atrial appendage Left bundle lead parameters: R waves 11 intervals, pacing impedance 646 ohms and pacing threshold 0.5 V at 0.4 ms Typical right bundle branch block pattern both in unipolar and bipolar low output Stimulus-V6 speak equals 26 ms Paced morphology is a typical right bundle pattern Atrial lead parameters : P waves 3.3 mV, pacing impedance 513 ohms and pacing threshold 0.5 V at 0.4 ms Device digital librarian: [email or web address], XT DR MRI Dual-chamber pacemaker device connected to the leads and placed in the subfascial pocket Patient tolerated the procedure well without acute complications Pacemaker programming [id number] 60-130, paced AV delay 230 ms
[2023-01-08 16:48] LABS: Glucose,Whole Blood 73 mg/dL (70-110)
[2023-01-08 19:47] LABS: Glucose,Whole Blood 115 mg/dL (70-110)
[2023-01-08] MEDS: PRAVASTATIN SODIUM 40 MG TAB PO SCH (20:50)
[2023-01-09 06:03] LABS: Glucose,Whole Blood 94 mg/dL (70-110)
[2023-01-09] MEDS: INSULIN ASPART (NovoLOG) 100 UNIT/ML VIAL SQ SCH ×2 (06:14→11:46)
[2023-01-09] MEDS: ACETAMINOPHEN TAB 325 MG TAB PO PRN ×2 (06:36→12:11)
[2023-01-09] MEDS: TAMSULOSIN 0.4 MG CAP.ER.24H PO SCH (08:36)
[2023-01-09] MEDS: LOSARTAN 25 MG TAB PO SCH (08:36)
--- NOTE | 2023-01-09 08:51 | XR ---
EXAMINATION TYPE: XR chest 2V DATE OF EXAM: 01/09/2023 COMPARISON: 10/24/2021 HISTORY: Shortness of breath TECHNIQUE: Frontal and lateral views of the chest are obtained. FINDINGS: Scattered senescent parenchymal changes noted. Hyperinflation compatible with COPD. No evidence for infiltrate. No evidence for atelectasis. Heart size is stable. Mediastinal structures are stable and grossly unremarkable. No evidence for hilar prominence. Degenerative changes dorsal spine. IMPRESSION: 1. No evidence for acute pulmonary disease.
[2023-01-09 11:43] LABS: Glucose,Whole Blood 101 mg/dL (70-110)
[2023-01-09] MEDS ORDERED: APIXABAN 5 MG TAB PO SCH (12:00)
[2023-01-09 12:11] VITALS: RESP 16
[2023-01-09 12:30] VITALS: BP 152/90; PULSE 66; TEMP 98
--- NOTE | 2023-01-09 12:39 | P.PN ---
Subjective HISTORY OF PRESENT ILLNESS: This is a 72-year-old male with a past medical history significant for atrial flutter with previous cardioversion and ablation, symptomatic paroxysmal AV block, presyncope, and hyperlipidemia with previous statin intolerance. Patient follows in the office with Dr. Long. We have been asked to see the patient in consultation for bradycardia. Patient examined at the bedside in the emergency room. Patient presented to the hospital for chief complaint of dizziness. Patient states his heart rate at home was dropping into the 30s. He reports having some shortness of breath as well. The patient was scheduled for permanent pacemaker implantation in January. Bedside telemetry reveals sinus bradycardia with a heart rate in the 50s. * EKG reveals sinus mechanism with right bundle branch block. Heart rate 60. * Current home cardiac medications include pravastatin 40 mg at night, losartan 25 mg daily, and Eliquis 5mg BID * Most recent echocardiogram obtained in September 2021 revealing ejection fraction 40-45%, moderate global hypokinesis, trace tricuspid regurgitation, and mild mitral regurgitation * Repeat echocardiogram performed in March 2022 revealed ejection fraction 50- 55% with mild LVH * Cardiac catheterization history: November 2021 revealing left dominant system. Normal filling pressures. No significant obstructive coronary artery disease. 01/07/2023 Patient examined this morning at the bedside. Patient denies chest pain or pressure. He denies shortness of breath. Telemetry reveals sinus mechanism with occasional bradycardia dipping into the 30s to 40s. He currently denies any dizziness or lightheadedness. 01/09/2023 Patient is status post dual-chamber pacemaker implantation with conduction system pacing. Patient examined this morning at the bedside. Patient currently denies chest pain or pressure. He denies shortness of breath. Postprocedural x-ray completed with no evidence for pneumothorax. Pacemaker was interrogated and is functioning properly. PHYSICAL EXAM: VITAL SIGNS: Reviewed. GENERAL: Well-developed in no acute distress. HEENT: Head is normocephalic. Pupils are equal, round. Sclerae anicteric. Mucous membranes of the mouth are moist. Neck supple. No JVD or thyromegaly LUNGS: Respirations even and unlabored. Lungs essentially clear to auscultation bilaterally. HEART: Bradycardic. Regular rate and rhythm. S1 and S2 heard. ABDOMEN: Soft. Nondistended. Nontender. EXTREMITIES: Normal range of motion. No clubbing or cyanosis. Peripheral pulses intact. No lower extremity edema NEUROLOGIC: Awake and alert. Oriented x 3. ASSESSMENT: Symptomatic bradycardia status post dual-chamber pacemaker implantation, [employer] Symptomatic paroxysmal AV block with presyncope History of symptomatic typical atrial flutter with previous cardioversion and ablation Hyperlipidemia with previous statin intolerance History of cardiomyopathy, nonischemic, ejection fraction 40-45%, with recovered EF now 50-55% No obstructive coronary artery disease, per cardiac catheterization November 2021 PLAN: Continue current cardiac medications Resume anticoagulation Patient is currently stable for discharge from a cardiac standpoint Patient to follow-up post discharge in the office Nurse practitioner note has been reviewed by physician. Signing provider agrees with the documented findings, assessment, and plan of care. Objective - Vital Signs Vital signs: Vital Signs Temp 98.1 F 01/09/23 07:57 Pulse 71 01/09/23 07:57 Resp 18 01/09/23 07:57 BP 122/71 01/09/23 07:57 Pulse Ox 100 01/09/23 07:57 FiO2 Intake & Output 01/08/23 01/09/23 01/09/23 18:59 06:59 18:59 Intake Total 510 0 360 Output Total 250 Balance 510 0 110 Intake: IV 50 Intake, IV Titration 100 Amount ACETAMINOPHEN IV (For NPO 100 ) 1,000 mg In Empty Bag 1 bag @ 400 mls/hr IVPB ONCE ONE Rx#:[id number] Oral 360 0 360 Output: Urine 250 Other: Voiding Method Toilet # Voids 2 1 - Labs CBC & Chem 7: 01/05/23 19:25 01/05/23 19:25 Labs: Abnormal Lab Results - Last 24 Hours (Table) 01/08/23 Range/Units 19:45 POC Glucose (mg/dL) 115 H (70-110) mg/dL
--- NOTE | 2023-01-09 13:12 | P.DS ---
Providers Date of admission: 01/05/23 21:51 Expected date of discharge: 01/09/23 Attending physician: Sandi Ogden MD Consults: 01/05/23 21:50 Consult Physician Stat Consulting Provider: Rom Long Consult Reason/Comments: tachy/chon Do you want consulting provider notified?: Already Contacted Primary care physician: Hal Whitman [place] [facility] Course: Symptomatic bradycardia Persistent atrial fibrillation on Apixiban Hypertension Hyperlipidemia Diabetes type 2 Obstructive sleep apnea BPH Hospital Course: 72-year-old man with a medical history of persistent atrial fibrillation on Apixiban status post previous ablation, diabetes, hyperlipidemia, obstructive sleep apnea, hypertension presented for evaluation of bradycardia. In the emergency room, patient was afebrile, 161/70, heart rate 46, 99% on room air. CBC, basic metabolic panel, liver function tests, troponin, coags were all unremarkable. EKG showed sinus rhythm with right bundle-branch block, left anterior fascicular block. Pt was seen by cardiology and recommended for dual chamber PPM, which was placed on 01/08. Pt did well after another 24 hours of observation - he was discharged home with PCP and cardiology f/u. I spent 32 minutes coordinating this discharge on 01/09 Gen: awake, alert HEENT: normocephalic, atraumatic, good hearing acuity, moist mucous membranes Resp: good air exchange, breathing comfortably with no accessory muscle use CVS: good distal perfusion x 4, GI: soft, NTTP, ND : no SPT, no CVAT, dove catheter not present MSK: no pitting edema, no clubbing Neuro: non-focal, moving all extremities Psych: cooperative, euthymic mood Patient Condition at Discharge: Good Plan - Discharge Summary Discharge Rx Participant: No New Discharge Prescriptions: New Acetaminophen Tab [Tylenol] 650 mg PO Q6HR PRN tab PRN Reason: Mild Pain (Scale 1 To 3) Continue Tamsulosin HCl [Flomax] 0.4 mg PO BID metFORMIN HCL [Glucophage] 500 mg PO DAILY Pravastatin Sodium [Pravachol] 40 mg PO HS Apixaban [Eliquis] 5 mg PO BID Losartan [Cozaar] 25 mg PO DAILY Discharge Medication List Tamsulosin HCl [Flomax] 0.4 mg PO BID 10/01/21 [History] Apixaban [Eliquis] 5 mg PO BID 10/24/21 [History] metFORMIN HCL [Glucophage] 500 mg PO DAILY 10/29/21 [History] Losartan [Cozaar] 25 mg PO DAILY 01/05/23 [History] Pravastatin Sodium [Pravachol] 40 mg PO HS 01/05/23 [History] Acetaminophen Tab [Tylenol] 650 mg PO Q6HR PRN tab 01/09/23 [Rx] Follow up Appointment(s)/Referral(s): Rom Long MD [STAFF PHYSICIAN] - 1 Week Hal Gutiérrez MD [Primary Care Provider] - 1-2 days Discharge Disposition: HOME SELF-CARE
== END 2023-01-09 14:53 | disposition home or self-care (01) | DRG 243 ==
LOC: EC 18:30 → 3SCARD 21:51
PROVIDERS: ADMIT Internal Medicine; ATTEND Internal Medicine
PROC: 02HK3JZ Insertion of Pacemaker Lead into Right Ventricle, Percutaneous Approach (ICD-10-PCS; principal; 2023-01-08 13:00)
PROC: 02H63JZ Insertion of Pacemaker Lead into Right Atrium, Percutaneous Approach (ICD-10-PCS; principal; 2023-01-08 13:00)
PROC: 0JH606Z Insertion of Pacemaker, Dual Chamber into Chest Subcutaneous Tissue and Fascia, Open Approach (ICD-10-PCS; principal; 2023-01-08 13:00)
DX: I49.5 Sick sinus syndrome (principal); I45.2 Bifascicular block; I48.19 Other persistent atrial fibrillation; I48.3 Typical atrial flutter; E78.5 Hyperlipidemia, unspecified; G47.33 Obstructive sleep apnea (adult) (pediatric); I10 Essential (primary) hypertension; I42.8 Other cardiomyopathies; I44.30 Unspecified atrioventricular block; Z79.01 Long term (current) use of anticoagulants; N40.0 Benign prostatic hyperplasia without lower urinary tract symptoms; Z79.84 Long term (current) use of oral hypoglycemic drugs; Z79.899 Other long term (current) drug therapy; Z85.46 Personal history of malignant neoplasm of prostate
CPT/HCPCS: 33208; 36415; 71046; 80053; 83036; 83735; 84484; 85025; 85610; 85730; 93005; 94760; 96360; 99285

== ENCOUNTER → 2024-05-30 | Outpatient (CLI) | payer MEDICARE ==
[2024-05-30 15:21] LABS: Basophils # (A) 0.04 X 10*3/uL (0.00-0.10); Basophils % (A) 0.5 %; Eosinophils # (A) 0.07 X 10*3/uL (0.04-0.35); Eosinophils % (A) 0.9 %; HCT 40.5 % (39.6-50.0); HGB 13.3 g/dL (13.0-17.0); Lymphocytes # (A) 2.21 X 10*3/uL (0.90-5.00); Lymphocytes % (A) 28.6 %; MCH 30.6 pg (27.0-32.0); MCHC 32.8 g/dL (32.0-37.0); MCV 93.3 FL (80.0-97.0); Mean Platelet Volume 10.4 FL (9.5-12.2); Monocytes # (A) 0.69 X 10*3/uL (0.20-1.00); Monocytes % (A) 8.9 %; NRBC Per 100 WBC 0 X 10*3/uL (0.00-0.01); Neutrophils # (A) 4.69 X 10*3/uL (1.80-7.70); Neutrophils % (A) 60.6 %; Platelet Count 326 X 10*3/uL (140-440); RBC 4.34 X 10*6/uL (4.40-5.60); RDW 13.2 % (11.5-14.5); WBC 7.74 X 10*3/uL (4.50-10.00)
[2024-05-30 15:39] LABS: Erythrocyte Sedimentation Rate 6 mm/Hr (0-20)
[2024-05-30 15:42] LABS: BUN/Creat Ratio 11.44 Ratio (12.00-20.00); Blood Urea Nitrogen 10.3 mg/dL (9.0-27.0); C Reactive Protein <0.30 mg/dL (0.00-0.80); Chloride 102 mmol/L (96-109); Glucose 107 mg/dL (70-110); Potassium 5.3 mmol/L (3.5-5.5); Sodium 138 mmol/L (135-145)
[2024-05-30 15:43] LABS: ALT 15 U/L (10-49); AST 23 U/L (14-35); Albumin 4.5 g/dL (3.8-4.9); Albumin/Globulin Ratio 1.73 Ratio (1.60-3.17); Alkaline Phosphatase 36 U/L (41-126); Calcium 9.3 mg/dL (8.7-10.3); Globulin 2.6 g/dL (1.6-3.3); Total Bilirubin 0.4 mg/dL (0.3-1.2); Total Protein 7.1 g/dL (6.2-8.2)
== END | disposition home or self-care (01) ==
LOC: LABWHC1 10:37
PROVIDERS: ATTEND Internal Medicine
DX: L29.9 Pruritus, unspecified (principal)
CPT/HCPCS: 36415; 80053; 84165; 84166; 84443; 85025; 85652; 86038; 86140; 86160